=== PATIENT | male | born 1945 | race Caucasian/White ===

== ENCOUNTER 2021-02-12 22:24 | Inpatient (IN) | payer MEDICARE ==
[2021-02-12] MEDS ORDERED: HEPARIN SODIUM 1,000 UN/ML (10ML VL) IV PRN (22:59)
--- NOTE | 2021-02-12 22:59 | ED ---
General Adult HPI - General Chief complaint: Syncope Stated complaint: Chest Pain Time Seen by Provider: 02/12/21 22:26 Source: patient, EMS Mode of arrival: EMS Limitations: no limitations - History of Present Illness Initial comments: This patient is a 75-year-old man who presents here as a transfer from [facility]. The patient had gone there after having chest pain and syncopal episodes. Patient states she was feeling like his usual self until around 3 in the afternoon. A little after that, he was walking from his garage to his home when he felt some pressure in the epigastric area/lower substernal area and then he passed out. Patient had some accompanying dyspnea and diaphoresis. After getting up, he reportedly had another one or 2 syncopal episodes and his had him go to the other hospital where he was found to grady ve an elevated troponin and possibly some ECG changes. Patient was transferred here to be admitted and have cardiology consultation. When I interview the patient, he states that the pressure in his chest had gone away. He is dyspnea and diaphoresis had resolved. Onset/Timin -: hour(s) Location: chest Radiation: other Quality: other (Pressure) Consistency: now resolved Improves with: medication Worsens with: none Associated Symptoms: chest pain, diaphoresis, shortness of breath, syncope Treatments Prior to Arrival: Aspirin, other - Related Data Home Medications Medication Instructions Recorded Confirmed Ascorbic Acid [Vitamin C] 1,000 mg PO DAILY 02/12/21 02/12/21 Aspirin EC [Ecotrin Low Dose] 81 mg PO DAILY 02/12/21 02/12/21 Carvedilol [Coreg] 12.5 mg PO BID 02/12/21 02/12/21 Cholecalciferol [Vitamin D3 (25 25 mcg PO DAILY 02/12/21 02/12/21 Mcg = 1000 Iu)] Elderberry Fruit and Flower [Black 1 cap PO DAILY 02/12/21 02/12/21 Elderberry 575 mg Cap] Gabapentin [Neurontin] 600 mg PO HS 02/12/21 02/14/21 Insulin Aspart (For Pump) [NovoLOG 0.01 unit SQ-PUMP CONTINUOUS MDD 02/12/21 02/12/21 (For Pump)] 90 units Magnesium 250 mg PO DAILY 02/12/21 02/12/21 Montelukast Sodium [Singulair] 10 mg PO DAILY 02/12/21 02/12/21 Zinc 50 mg PO DAILY 02/12/21 02/12/21 traZODone HCL [Desyrel] 50 mg PO HS 02/12/21 02/12/21 Omeprazole Magnesium [PriLOSEC OTC] 20 mg PO DAILY 02/13/21 02/13/21 Previous Rx's Medication Instructions Recorded Clopidogrel Bisulfate [Plavix] 75 mg PO DAILY #90 tab 02/15/21 Rosuvastatin Calcium [Crestor] 10 mg PO DAILY #90 tab 02/15/21 Ticagrelor [Brilinta] 90 mg PO BID #60 tab 02/15/21 Allergies Allergy/AdvReac Type Severity Reaction Status Date / Time isosorbide [From Imdur] AdvReac MUSCLE Verified 02/12/21 23:16 WEAKNESS, Losses feeling in legs Johluxs-Lee-Izy Reductase AdvReac MUSCLE Verified 02/12/21 23:16 Inhibitor WEAKNESS, Losses feeling in legs Review of Systems ROS Statement: Those systems with pertinent positive or pertinent negative responses have been documented in the HPI. ROS Other: All systems not noted in ROS Statement are negative. Constitutional: Denies: fever, chills Respiratory: Reports: dyspnea. Denies: cough Cardiovascular: Reports: chest pain, syncope. Denies: palpitations, orthopnea, edema Gastrointestinal: Reports: nausea, vomiting. Denies: abdominal pain Genitourinary: Denies: dysuria, hematuria Musculoskeletal: Denies: back pain Skin: Denies: rash Neurological: Denies: headache, weakness, numbness Past Medical History Past Medical History: Chest Pain / Angina, Syncope History of Any Multi-Drug Resistant Organisms: None Reported Past Surgical History: Coronary Bypass/CABG Past Psychological History: No Psychological Hx Reported Smoking Status: Never smoker Past Alcohol Use History: None Reported Past Drug Use History: None Reported - Past Family History Family Family Medical History: No Reported History General Exam Limitations: no limitations General appearance: alert, in no apparent distress Head exam: Present: atraumatic, normocephalic Eye exam: Present: normal appearance. Absent: scleral icterus, conjunctival injection ENT exam: Present: normal oropharynx Neck exam: Present: normal inspection Respiratory exam: Present: normal lung sounds bilaterally. Absent: respiratory distress, wheezes, rales, rhonchi, stridor Cardiovascular Exam: Present: regular rate, normal rhythm, normal heart sounds. Absent: systolic murmur, diastolic murmur, rubs, gallop GI/Abdominal exam: Present: soft. Absent: distended, tenderness, guarding, rebound, rigid, mass Extremities exam: Present: normal inspection, normal capillary refill, pedal edema (Trace edema bilateral ankles). Absent: calf tenderness Back exam: Present: normal inspection Neurological exam: Present: alert Skin exam: Present: warm, dry, intact, normal color. Absent: rash Course Vital Signs 02/12/21 02/12/21 02/13/21 22:39 23:32 00:59 Temperature 98.1 F 98.2 F 97.9 F Pulse Rate 68 68 Pulse Rate [ 67 Pulse Oximetery ] Respiratory 16 16 18 Rate Blood Pressure 183/87 172/79 Blood Pressure 188/91 [Left Arm] O2 Sat by Pulse 98 97 99 Oximetry EKG Findings - EKG Results: EKG: interpreted by ERMD, sinus rhythm (Rate 66 bpm) - Blocks, Hamill, Hypertrophy, ST Abn: AV and intraventricular conduction: 1 AV block, right bundle branch block (fixed/intermittent, complete/incomplete) QRS axis and voltage: left axis deviation (-30 to -90) Medical Decision Making - Lab Data Result diagrams: 02/15/21 07:03 02/15/21 07:03 Disposition Clinical Impression: NSTEMI (non-ST elevated myocardial infarction), Syncope Disposition: ADMITTED IP TO THIS HOSP Condition: Serious Is patient prescribed a controlled substance at d/c from ED?: No
[2021-02-12] MEDS ORDERED: HEPARIN SOD,PORK IN 0.45% NACL 25,000 UNIT in 0.45% NACL 1 250ML.BAG IV SCH (23:00)
[2021-02-12 23:25] LABS: Basophils % (A) 0 %; Eosinophils # (A) 0.2 k/uL (0-0.7); Eosinophils % (A) 2 %; HCT 41.7 % (39.0-53.0); HGB 14.2 gm/dL (13.0-17.5); Lymphocytes # (A) 1.4 k/uL (1.0-4.8); Lymphocytes % (A) 18 %; MCH 31.7 pg (25.0-35.0); MCV 93.1 fL (80.0-100.0); Mean Platelet Volume 7.4; Monocytes # (A) 0.5 k/uL (0-1.0); Monocytes % (A) 7 %; Neutrophils # (A) 5.4 k/uL (1.3-7.7); Neutrophils % (A) 71 %; Platelet Count 260 k/uL (150-450); RBC 4.48 m/uL (4.30-5.90); RDW 12.8 % (11.5-15.5); WBC 7.6 k/uL (3.8-10.6)
[2021-02-12] MEDS: SODIUM CHLORIDE 0.9% 1,000 ML IV SCH (23:33)
[2021-02-12 23:37] LABS: Partial Thromboplastin Time 45.1 sec (22.0-30.0); Prothrombin Time 10.3 sec (9.0-12.0)
[2021-02-12 23:39] LABS: Calcium 9.1 mg/dL (8.4-10.2)
[2021-02-13 01:01] LABS: Glucose,Whole Blood 160 mg/dL (75-99)
[2021-02-13] MEDS: traZODone HCL 50 MG TAB PO SCH ×2 (01:47→20:51)
[2021-02-13] MEDS: GABAPENTIN 400 MG CAP PO SCH ×2 (01:47→20:51)
[2021-02-13] MEDS: carvediloL 12.5 MG TAB PO SCH ×3 (01:47→20:51)
--- NOTE | 2021-02-13 03:59 | P.HPIM ---
History of Present Illness H&P Date: 02/12/21 Chief Complaint: Chest pain 75-year-old male with strong history of coronary artery disease status post bypass surgery, 2007, COPD, diabetes mellitus Patient was a transfer from [facility] for cardiology evaluation after was found to have elevated troponin and T-wave inversion in inferior leads and saying chest pain and syncope at home Patient comes in after experiencing chest pain resulting in syncope. As he was walking to his home after parking in the garage he experienced some chest pressure 8 out of 10 in severity retrosternal associated with heavy breathing diaphoresis he felt dizzy and about to pass out sent down on the deck and actually passed out for couple minutes his found him to come inside and then he experienced couple more episodes of passing out. Patient admits to palpitations diaphoresis heavy breathing and chest pressure. He claims that these episodes has been happening over the past couple weeks randomly without passing out usually he will experience some chest pressure with heavy breathing that would last couple hours and then will go away on its own he has not been taking any nitro for that. He has been lost to follow-up with cardiology for about a year now. His last left heart cath was back in 2007 when he required bypass surgery otherwise patient is not a good historian however he denies any fevers coughing shortness of breath he denies any GI bleeding abdominal pain he denies any sick contacts. Blood work at [facility] showed troponin of 8.8, creatinine of 1.6 with CK D3, d-dimer of 2.16, EKG showed first-degree AV block with right bundle branch block and T wave inversion in inferior leads patient was started on heparin at [facility] and sent to our hospital Review of Systems Pertinent positives as noted in HPI. All other systems were reviewed and are negative Past Medical History Past Medical History: Chest Pain / Angina, COPD, Diabetes Mellitus, Hyperlipidemia, Hypertension, Syncope History of Any Multi-Drug Resistant Organisms: None Reported Past Surgical History: Coronary Bypass/CABG Past Psychological History: No Psychological Hx Reported Smoking Status: Never smoker Past Alcohol Use History: None Reported Past Drug Use History: None Reported - Past Family History Family Family Medical History: No Reported History Medications and Allergies Home Medications Medication Instructions Recorded Confirmed Type Ascorbic Acid [Vitamin C] 1,000 mg PO DAILY 02/12/21 02/12/21 History Aspirin EC [Ecotrin Low Dose] 81 mg PO DAILY 02/12/21 02/12/21 History Carvedilol [Coreg] 12.5 mg PO BID 02/12/21 02/12/21 History Cholecalciferol [Vitamin D3 (25 25 mcg PO DAILY 02/12/21 02/12/21 History Mcg = 1000 Iu)] Elderberry Fruit and Flower [Black 1 cap PO DAILY 02/12/21 02/12/21 History Elderberry 575 mg Cap] Gabapentin [Neurontin] 400 mg PO HS 02/12/21 02/12/21 History Insulin Aspart (For Pump) [NovoLOG 0.01 unit SQ-PUMP CONTINUOUS MDD 02/12/21 02/12/21 History (For Pump)] 90 units Magnesium 250 mg PO DAILY 02/12/21 02/12/21 History Montelukast Sodium [Singulair] 10 mg PO DAILY 02/12/21 02/12/21 History Zinc 50 mg PO DAILY 02/12/21 02/12/21 History traZODone HCL [Desyrel] 50 mg PO HS 02/12/21 02/12/21 History Allergies Allergy/AdvReac Type Severity Reaction Status Date / Time isosorbide [From Imdur] AdvReac MUSCLE Verified 02/12/21 23:16 WEAKNESS, Losses feeling in legs Lbrmamr-Nwf-Cxl Reductase AdvReac MUSCLE Verified 02/12/21 23:16 Inhibitor WEAKNESS, Losses feeling in legs Physical Exam Vitals: Vital Signs Temp Pulse Resp BP Pulse Ox 02/12/21 23:32 98.2 F 68 16 172/79 97 02/12/21 22:39 98.1 F 68 16 183/87 98 Intake and Output 02/12/21 02/12/21 02/13/21 14:59 22:59 06:59 Other: Weight 126.099 kg Constitutional: No acute distress, conversant, pleasant Eyes: Anicteric sclerae, moist conjunctiva, Pupils equal round reactive to light ENMT: NC/AT Oropharynx clear, no erythema, or exudates Neck: Supple, FROM, no masses, or JVD No carotid bruits No thyromegaly Lungs: Clear to auscultation Clear to percussion Normal respiratory effort, no accessory muscle use Cardiovascular: Heart regular in rate and rhythm, No murmurs, gallops, or rubs +1 bilateral peripheral edema Abdominal: Soft Nontender, no guarding, rebound or rigidity Abdomen moving with respiration Normoactive bowel sounds No hepatomegaly, No splenomegaly No palpable mass No abdominal wall hernia noted Patient has an insulin pump in place currently suspended Skin: Have by half centimeter superficial ulcer over the sole of the right foot over the ball of the foot, small area of bruising and erythema over the tip of the left big toe otherwise, Normal temperature, tone, texture, turgor No induration No subcutaneous nodules No rash, lesions Extremities: No digital cyanosis No clubbing Pedal pulses weak and symmetrical, capillary refill is immediate Radial pulses intact and symmetrical No calf tenderness Psychiatric: Alert and oriented to person, place and time Appropriate affect fair judgement Neuro Muscles Strength 5/5 in all 4 extremities Sensation to light touch grossly present throughout Cranial nerves II-XII grossly intact No focal sensory deficits Lymphatics: no palpable cervical or supraclavicular , or inguinal lymph nodes Results CBC & Chem 7: 02/12/21 23:14 02/12/21 23:14 Labs: Abnormal Lab Results - Last 24 Hours (Table) 02/12/21 02/12/21 Range/Units 23:14 23:14 APTT 45.1 H (22.0-30.0) sec BUN 26 H (9-20) mg/dL Creatinine 1.62 H (0.66-1.25) mg/dL Glucose 138 H (74-99) mg/dL Assessment and Plan Assessment: NSTEMI Elevated creatinine unknown of underlying CK D3 or LYUBOV Heparin drip Trend troponins Cardiology consult History of CAD status post bypass Continue with aspirin and carvedilol Patient has intolerance to isosorbide and statins in the past IV fluid hydration gentle Elevated d-dimer CTA was not performed due to elevated renal function patient was started on heparin drip for an STEMI Check venous Doppler ultrasound of the lower legs rule out any blood clots Chronic conditions Hypertension Diabetes mellitus COPD Check A1c Insulin sliding scale, suspend insulin pump as patient is nothing by mouth Resume home meds Superficial wounds on bilateral feet patient follows up with foot doctor every 3 months continued follow-up as an outpatient CODE STATUS: Full code DVT prophylaxis: On heparin drip Discussed with: Patient, ER, RN Anticipated length of stay more than [address]: Home A total of 65 minutes was spent on the care of this complex patient more than 50% of the time was spent in counseling and care coordination.
[2021-02-13 06:45] LABS: Glucose,Whole Blood 365 mg/dL (75-99)
[2021-02-13] MEDS: INSULIN ASPART (NovoLOG) 100 UNIT/ML VIAL SQ SCH ×4 (06:47→20:51)
[2021-02-13 07:38] LABS: Basophils % (A) 0 %; Eosinophils # (A) 0.2 k/uL (0-0.7); Eosinophils % (A) 2 %; HGB 13.1 gm/dL (13.0-17.5); Lymphocytes % (A) 12 %; MCH 30.8 pg (25.0-35.0); MCV 96.2 fL (80.0-100.0); Mean Platelet Volume 7.5; Monocytes # (A) 0.5 k/uL (0-1.0); Monocytes % (A) 6 %; Neutrophils # (A) 6.6 k/uL (1.3-7.7); Neutrophils % (A) 79 %; Platelet Count 231 k/uL (150-450); RBC 4.27 m/uL (4.30-5.90); RDW 13.5 % (11.5-15.5); WBC 8.3 k/uL (3.8-10.6)
[2021-02-13 07:48] LABS: Calcium 8.2 mg/dL (8.4-10.2); Potassium 5.5 mmol/L (3.5-5.1)
[2021-02-13] MEDS: IPRATROPIUM-ALBUTEROL 3 ML NEB INHALATION PRN ×3 (08:19→19:43)
--- NOTE | 2021-02-13 08:19 | US ---
EXAMINATION TYPE: US venous doppler duplex LE DATE OF EXAM: 02/13/2021 8:14 AM COMPARISON: None CLINICAL HISTORY: elevated D dimer, rul eout clot. SOB, elevated D-Dimer SIDE PERFORMED: Bilateral TECHNIQUE: The lower extremity deep venous system is examined utilizing real time linear array sonog karuna with graded compression, doppler sonography and color-flow sonography. VESSELS IMAGED: Common Femoral Vein Deep Femoral Vein Greater Saphenous Vein * Femoral Vein Popliteal Vein Small Saphenous Vein * Proximal Calf Veins (* superficial vessels) Right Leg: Negative for DVT Left Leg: Negative for DVT, pt unable to tolerate compressions from left groin to distal femoral vei n which limits the exam. IMPRESSION: 1. No diagnostic evidence of DVT as visualized and given limitation of the exam.
[2021-02-13 08:49] LABS: Prothrombin Time 10.7 sec (9.0-12.0)
[2021-02-13] MEDS ORDERED: ASPIRIN 81 MG PO SCH (09:00)
[2021-02-13] MEDS ORDERED: ASPIRIN 325 MG TAB PO SCH (09:00)
[2021-02-13 09:59] LABS: Glucose,Whole Blood 268 mg/dL (75-99)
[2021-02-13] MEDS: MONTELUKAST 10 MG TAB PO SCH (10:10)
[2021-02-13] MEDS ORDERED: NITROGLYCERIN SL TABS 0.4 MG TAB SUBLINGUAL PRN ×2 (10:37→14:14)
[2021-02-13] MEDS ORDERED: ALPRAZolam 0.5 MG TAB PO PRN (10:37)
[2021-02-13] MEDS ORDERED: ALPRAZolam 0.25 MG TAB PO PRN (10:37)
[2021-02-13] MEDS: NITROGLYCERIN SL TABS 0.4 MG TAB SUBLINGUAL PRN ×2 (10:37→15:52)
--- NOTE | 2021-02-13 11:01 | P.CRDCN ---
History of Present Illness History of present illness: HISTORY OF PRESENTING ILLNESS Patient is a pleasant 75-year-old male with history of coronary artery disease status post CABG in 2007, COPD, diabetes mellitus, chronic kidney disease, congestive heart failure who presents secondary to syncopal episodes and non- STEMI. Patient states that he occasionally gets chest tightness over the last few years. Yesterday however he was coming home from shopping and had been having chest discomfort associated with some shortness breath, diaphoresis and nausea for the last few hours. When he was walking back in the house he became lightheaded and then had a syncopal episode. He got into the house and then had a second syncopal episode. He waited approximately an hour until his daughter urged him to seek medical care. He presented to [facility] and was found to have non-STEMI and transferred to [facility]. Currently he has been describing intermittent chest tightness. EKG shows sinus rhythm with first-degree block, right bundle branch block, nonspecific ST, T-wave abnormalities. Patient also underwent venous ultrasound which showed no DVT. Blood work reviewed with white blood cell 7.6, hemoglobin 14.2, BUN 26, creatinine 1.6, troponin 7.75, 6.8, a 0.7, cholesterol 219, LDL 156. Patient had previously been refusing nitrogl ycerin because he thought it decreases blood sugar. He normally follows with Dr. Sandoval however has not been in an approximately a year. He has a history of bypass however states his had no further stenting since that time. REVIEW OF SYSTEMS At the time of my exam: CONSTITUTIONAL: Denies fever or chills. CARDIOVASCULAR: +chest pain, +shortness of breath,no orthopnea, PND or palpitations. RESPIRATORY: Denies cough. GASTROINTESTINAL: Denies abdominal pain, diarrhea, constipation, nausea or vom iting. MUSCULOSKELETAL: Denies myalgias. NEUROLOGIC: Denies numbness, tingling or weakness. ENDOCRINE: Denies fatigue, weight change, polydipsia or polyurina. GENITOURINARY: Denies burning, hematuria or urgency with micturation. HEMATOLOGIC: Denies history of anemia or bleeding. PHYSICAL EXAMINATION Vital signs reviewed. CONSTITUTIONAL: No apparent distress, obese HEENT: Head is normocephalic. Pupils are equal, round. Sclerae anicteric. Mucous membranes of the mouth are moist. No JVD. No carotid bruit. CHEST EXAMINATION: Lungs are clear to auscultation. No chest wall tenderness is noted on palpation or with deep breathing. HEART EXAMINATION: Regular rate and rhythm. S1, S2 heard. No murmurs, gallops or rub. ABDOMEN: Soft, nontender. Positive bowel sounds. EXTREMITIES: 2+ peripheral pulses, no lower extremity edema and no calf tenderness. NEUROLOGIC EXAMINATION: Patient is awake, alert and oriented x3. ASSESSMENT 1. Syncope 2. Non-STEMI, ongoing intermittent chest pain 3. Coronary artery disease with history of CABG 2007 4. Essential hypertension 5. Hyperlipidemia 6. History of congestive heart failure, unclear systolic or diastolic 7. Diabetes mellitus 8. Chronic kidney disease PLAN Patient with non-STEMI and chest pain, shortness breath, diaphoresis. He had 2 syncopal episodes unclear if tachycardia arrhythmia or bradycardia from his non- STEMI. Continue to monitor on telemetry. Check 2-D echo. Discussed risks and benefits of heart catheterization including acute kidney injury however discussed benefits likely outweigh risks with patient having ongoing intermittent chest pain. Continue heparin. We will proceed with heart catheterization. Further recommendations to follow. Past Medical History Past Medical History: Chest Pain / Angina, COPD, Diabetes Mellitus, Hyperlipidemia, Hypertension, Syncope History of Any Multi-Drug Resistant Organisms: None Reported Past Surgical History: Coronary Bypass/CABG Additional Past Surgical History / Comment(s): CABG '08 Past Anesthesia/Blood Transfusion Reactions: No Reported Reaction Past Psychological History: No Psychological Hx Reported Smoking Status: Never smoker Past Alcohol Use History: None Reported Past Drug Use History: None Reported - Past Family History Family Family Medical History: No Reported History Medications and Allergies Home Medications Medication Instructions Recorded Confirmed Type Ascorbic Acid [Vitamin C] 1,000 mg PO DAILY 02/12/21 02/12/21 History Aspirin EC [Ecotrin Low Dose] 81 mg PO DAILY 02/12/21 02/12/21 History Carvedilol [Coreg] 12.5 mg PO BID 02/12/21 02/12/21 History Cholecalciferol [Vitamin D3 (25 25 mcg PO DAILY 02/12/21 02/12/21 History Mcg = 1000 Iu)] Elderberry Fruit and Flower [Black 1 cap PO DAILY 02/12/21 02/12/21 History Elderberry 575 mg Cap] Gabapentin [Neurontin] 400 mg PO HS 02/12/21 02/12/21 History Insulin Aspart (For Pump) [NovoLOG 0.01 unit SQ-PUMP CONTINUOUS MDD 02/12/21 02/12/21 History (For Pump)] 90 units Magnesium 250 mg PO DAILY 02/12/21 02/12/21 History Montelukast Sodium [Singulair] 10 mg PO DAILY 02/12/21 02/12/21 History Zinc 50 mg PO DAILY 02/12/21 02/12/21 History traZODone HCL [Desyrel] 50 mg PO HS 02/12/21 02/12/21 History Omeprazole Magnesium [PriLOSEC OTC] 20 mg PO DAILY 02/13/21 02/13/21 History Allergies Allergy/AdvReac Type Severity Reaction Status Date / Time isosorbide [From Imdur] AdvReac MUSCLE Verified 02/12/21 23:16 WEAKNESS, Losses feeling in legs Yqfufly-Jmb-Fhp Reductase AdvReac MUSCLE Verified 02/12/21 23:16 Inhibitor WEAKNESS, Losses feeling in legs Physical Exam Vitals: Vital Signs Temp Pulse Pulse Resp BP BP Pulse Ox 02/13/21 08:32 66 02/13/21 08:21 64 02/13/21 04:00 80 18 152/81 97 02/13/21 00:59 97.9 F 67 18 188/91 99 02/12/21 23:32 98.2 F 68 16 172/79 97 02/12/21 22:39 98.1 F 68 16 183/87 98 Intake and Output 02/12/21 02/13/21 02/13/21 22:59 06:59 14:59 Intake Total 500 107.333 Balance 500 107.333 Intake: Intake, IV Titration 500 107.333 Amount Heparin Sod,Pork in 0.45% 107.333 NaCl 25,000 unit In 0.45 % NaCl 1 250ml.bag @ 7.94 UNITS/KG/HR 10.012 mls/ hr IV .Q24H JULIAN Rx#: [id number] Sodium Chloride 0.9% 1, 500 000 ml @ 100 mls/hr IV . Q10H JULIAN Rx#:[id number] Oral 0 Other: # Voids 2 Weight 126.099 kg 145.5 kg Results 02/13/21 07:11 02/13/21 07:11 Cardiac Enzymes 02/12/21 02/13/21 02/13/21 Range/Units 23:14 02:07 07:11 Troponin I 7.750 H* 6.800 H* 8.720 H* (0.000-0.034) ng/mL Coagulation 02/12/21 02/13/21 02/13/21 Range/Units 23:14 07:11 07:11 PT 10.3 10.7 (9.0-12.0) sec APTT 45.1 H 40.2 H (22.0-30.0) sec Lipids 02/13/21 Range/Units 07:11 Triglycerides 121 (<150) mg/dL Cholesterol 219 H (<200) mg/dL HDL Cholesterol 39 L (40-60) mg/dL CBC 02/12/21 02/13/21 Range/Units 23:14 07:11 WBC 7.6 8.3 (3.8-10.6) k/uL RBC 4.48 4.27 L (4.30-5.90) m/uL Hgb 14.2 13.1 (13.0-17.5) gm/dL Hct 41.7 41.0 (39.0-53.0) % Plt Count 260 231 (150-450) k/uL Comprehensive Metabolic Panel 02/12/21 02/13/21 Range/Units 23:14 07:11 Sodium 139 135 L (137-145) mmol/L Potassium 5.0 5.5 H (3.5-5.1) mmol/L Chloride 106 103 (98-107) mmol/L Carbon Dioxide 27 24 (22-30) mmol/L BUN 26 H 26 H (9-20) mg/dL Creatinine 1.62 H 1.57 H (0.66-1.25) mg/dL Glucose 138 H 404 H (74-99) mg/dL Calcium 9.1 8.2 L (8.4-10.2) mg/dL Current Medications Generic Name Dose Route Start Last Admin Trade Name Freq PRN Reason Stop Dose Admin Albuterol/Ipratropium 3 ml 02/13/21 04:00 02/13/21 08:19 Ipratropium-Albuterol 3 Ml Neb INHALATION 3 ml RT-QID PRN Administration Shortness Of Breath Or Wheezing Alprazolam 0.25 mg 02/13/21 10:37 Alprazolam 0.25 Mg Tab PO Q6HR PRN Mild Anxiety Alprazolam 0.5 mg 02/13/21 10:37 Alprazolam 0.5 Mg Tab PO Q6HR PRN Moderate Anxiety Aspirin 325 mg 02/14/21 06:00 Aspirin 325 Mg Tab PO 02/14/21 06:01 ONCE ONE Aspirin 325 mg 02/15/21 09:00 Aspirin 325 Mg Tab PO DAILY JULIAN Atorvastatin Calcium 80 mg 02/14/21 06:00 Atorvastatin 80 Mg Tab PO 02/14/21 06:01 ONCE ONE Carvedilol 12.5 mg 02/13/21 01:30 02/13/21 10:11 Carvedilol 12.5 Mg Tab PO 12.5 mg BID JULIAN Administration Gabapentin 400 mg 02/13/21 01:28 02/13/21 01:47 Gabapentin 400 Mg Cap PO 400 mg HS JULIAN Administration Heparin Sodium (Porcine) 0 unit 02/12/21 22:59 Heparin Sodium 1,000 Un/Ml (10ml Vl) IV PER PROTOCOL PRN Low PTT Protocol Heparin Sodium/Sodium Chloride 250 mls @ 10.012 mls/hr 02/12/21 23:00 02/13/21 10:14 25,000 unit/ Sodium Chloride IV 9.93 units/kg/hr .Q24H JULIAN 12.522 mls/hr Titration Protocol 7.94 UNITS/KG/HR Sodium Chloride 1,000 mls @ 100 mls/hr 02/12/21 23:00 02/12/21 23:33 Saline 0.9% IV 100 mls/hr .Q10H JULIAN Administration Sodium Chloride 1,000 ml/ IV 1,000 mls @ 145.5 mls/hr 02/14/21 00:00 Solution IV 02/14/21 06:52 .Q6H53M ONE 1 ML/KG/HR Heparin Sodium (Porcine) 10, 1,001 mls @ 999 mls/hr 02/14/21 07:00 000 unit/ Sodium Chloride IRRIGATION 02/14/21 23:00 ONCE PRN INTRA-OP Heparin Sodium (Porcine) 2,500 250.5 mls @ 250 mls/hr 02/14/21 07:00 unit/ Sodium Chloride IRRIGATION 02/14/21 23:00 ONCE PRN INTRA-OP Insulin Aspart 0 unit 02/13/21 07:30 02/13/21 06:47 Insulin Aspart (Novolog) 100 Unit/Ml Vial SQ 10 unit ACHS JULIAN Administration Protocol Insulin Detemir 10 unit 02/13/21 10:30 Insulin Detemir (Levemir) 100 Unit/Ml Syr SQ DAILY@0700 JULIAN Insulin Detemir 10 unit 02/13/21 21:00 Insulin Detemir (Levemir) 100 Unit/Ml Syr SQ HS JULIAN Montelukast Sodium 10 mg 02/13/21 09:00 02/13/21 10:10 Montelukast 10 Mg Tab PO 10 mg DAILY JULIAN Administration Nitroglycerin 0.4 mg 02/12/21 23:00 02/13/21 10:37 Nitroglycerin Sl Tabs 0.4 Mg Tab SUBLINGUAL 0.4 mg Q5M PRN Administration Chest Pain Trazodone HCl 50 mg 02/13/21 01:28 02/13/21 01:47 Trazodone Hcl 50 Mg Tab PO 50 mg HS JULIAN Administration Intake and Output 02/12/21 02/13/21 02/13/21 22:59 06:59 14:59 Intake Total 500 107.333 Balance 500 107.333 Intake: Intake, IV Titration 500 107.333 Amount Heparin Sod,Pork in 0.45% 107.333 NaCl 25,000 unit In 0.45 % NaCl 1 250ml.bag @ 7.94 UNITS/KG/HR 10.012 mls/ hr IV .Q24H JULIAN Rx#: [id number] Sodium Chloride 0.9% 1, 500 000 ml @ 100 mls/hr IV . Q10H JULIAN Rx#:[id number] Oral 0 Other: # Voids 2 Weight 126.099 kg 145.5 kg 02/13/21 07:11 02/13/21 07:11
[2021-02-13] MEDS ORDERED: IV FLUID CONTINUATION 1,000 ML IV ONE (11:20)
[2021-02-13] MEDS ORDERED: LIDOCAINE 1% INJ 10MG/ML (20 ML MDV) ONE (11:32)
[2021-02-13] MEDS ORDERED: VERAPAMIL 2.5 MG/ML 2 ML AMP ONE (11:32)
[2021-02-13] MEDS ORDERED: fentaNYL (PF) 50 MCG/ML 2 ML AMP ONE (11:42)
[2021-02-13] MEDS ORDERED: MIDAZOLAM 2 MG/2 ML VIAL IV ONE (11:44)
[2021-02-13] MEDS ORDERED: LIDOCAINE 1% INJ 10MG/ML (20 ML MDV) SQ ONE (11:44)
[2021-02-13] MEDS ORDERED: fentaNYL (PF) 50 MCG/ML 2 ML AMP IV ONE (11:44)
[2021-02-13] MEDS ORDERED: HEPARIN SODIUM 1,000 UN/ML (10ML VL) ONE (11:52)
[2021-02-13] MEDS: HEPARIN SODIUM 1,000 UN/ML (10ML VL) IVP ONE ×3 (11:53→12:52)
[2021-02-13] MEDS ORDERED: SODIUM CHLORIDE 0.9% 1,000 ML IV ONE (12:09)
[2021-02-13] MEDS ORDERED: TICAGRELOR 90 MG TAB ONE (12:09)
[2021-02-13] MEDS ORDERED: TICAGRELOR 90 MG TAB PO ONE (12:10)
[2021-02-13] MEDS ORDERED: IOPAMIDOL-370 100ML BTL INJ ONE ×2 (12:14→12:52)
--- NOTE | 2021-02-13 12:18 | P.PN ---
Subjective Progress Note Date: 02/13/21 Patient is doing well this morning. He denies any chest pain at this time. He is scheduled for left heart catheterization a little bit later. Objective - Vital Signs Vital signs: Vital Signs Temp 97.9 F 02/13/21 00:59 Pulse 66 02/13/21 08:32 Resp 18 02/13/21 04:00 BP 152/81 02/13/21 04:00 Pulse Ox 97 02/13/21 04:00 Intake & Output 02/12/21 02/13/21 02/13/21 18:59 06:59 18:59 Intake Total 500 257.333 Balance 500 257.333 Weight 145.5 kg Intake: IV 150 Intake, IV Titration 500 107.333 Amount Heparin Sod,Pork in 0.45% 107.333 NaCl 25,000 unit In 0.45 % NaCl 1 250ml.bag @ 7.94 UNITS/KG/HR 10.012 mls/ hr IV .Q24H JULIAN Rx#: [id number] Sodium Chloride 0.9% 1, 500 000 ml @ 100 mls/hr IV . Q10H JULIAN Rx#:[id number] Oral 0 Other: # Voids 2 - Exam General: The patient is awake and alert, in no distress Eye: there is normal conjunctiva bilaterally. Neck: The neck is supple, there is no JVD. Cardiovascular: Normal S1-S2, no S3-S4, no murmurs. Respiratory: Lungs clear to auscultation bilaterally Gastrointestinal: Abdomen is soft, nontender Musculoskeletal: There is no pedal edema. Neurological:. Speech is normal. Skin: Skin is warm and dry - Labs CBC & Chem 7: 02/13/21 07:11 02/13/21 07:11 Labs: Abnormal Lab Results - Last 24 Hours (Table) 02/12/21 02/12/21 02/12/21 Range/Units 23:14 23:14 23:14 RBC (4.30-5.90) m/uL APTT 45.1 H (22.0-30.0) sec Sodium (137-145) mmol/L Potassium (3.5-5.1) mmol/L BUN 26 H (9-20) mg/dL Creatinine 1.62 H (0.66-1.25) mg/dL Glucose 138 H (74-99) mg/dL POC Glucose (mg/dL) (75-99) mg/dL Calcium (8.4-10.2) mg/dL Troponin I 7.750 H* (0.000-0.034) ng/mL Cholesterol (<200) mg/dL LDL Cholesterol, Calc (0-99) mg/dL HDL Cholesterol (40-60) mg/dL 02/13/21 02/13/21 02/13/21 Range/Units 00:58 02:07 06:44 RBC (4.30-5.90) m/uL APTT (22.0-30.0) sec Sodium (137-145) mmol/L Potassium (3.5-5.1) mmol/L BUN (9-20) mg/dL Creatinine (0.66-1.25) mg/dL Glucose (74-99) mg/dL POC Glucose (mg/dL) 160 H 365 H (75-99) mg/dL Calcium (8.4-10.2) mg/dL Troponin I 6.800 H* (0.000-0.034) ng/mL Cholesterol (<200) mg/dL LDL Cholesterol, Calc (0-99) mg/dL HDL Cholesterol (40-60) mg/dL 02/13/21 02/13/21 02/13/21 Range/Units 07:11 07:11 07:11 RBC 4.27 L (4.30-5.90) m/uL APTT 40.2 H (22.0-30.0) sec Sodium (137-145) mmol/L Potassium (3.5-5.1) mmol/L BUN (9-20) mg/dL Creatinine (0.66-1.25) mg/dL Glucose (74-99) mg/dL POC Glucose (mg/dL) (75-99) mg/dL Calcium (8.4-10.2) mg/dL Troponin I 8.720 H* (0.000-0.034) ng/mL Cholesterol (<200) mg/dL LDL Cholesterol, Calc (0-99) mg/dL HDL Cholesterol (40-60) mg/dL 02/13/21 02/13/21 Range/Units 07:11 09:58 RBC (4.30-5.90) m/uL APTT (22.0-30.0) sec Sodium 135 L (137-145) mmol/L Potassium 5.5 H (3.5-5.1) mmol/L BUN 26 H (9-20) mg/dL Creatinine 1.57 H (0.66-1.25) mg/dL Glucose 404 H (74-99) mg/dL POC Glucose (mg/dL) 268 H (75-99) mg/dL Calcium 8.2 L (8.4-10.2) mg/dL Troponin I (0.000-0.034) ng/mL Cholesterol 219 H (<200) mg/dL LDL Cholesterol, Calc 156 H (0-99) mg/dL HDL Cholesterol 39 L (40-60) mg/dL Assessment and Plan Assessment: NSTEMI Elevated creatinine unknown of underlying CK D3 or LYUBOV Heparin drip Cardiology consulted plan for left heart catheterization History of CAD status post bypass Continue with aspirin and carvedilol Patient has intolerance to isosorbide and statins in the past IV fluid hydration gentle Elevated d-dimer CTA was not performed due to elevated renal function patient was started on heparin drip for an STEMI Venous Doppler negative bilateral Chronic conditions Hypertension Diabetes mellitus COPD Check A1c Insulin sliding scale, suspend insulin pump as patient is nothing by mouth Resume home meds Superficial wounds on bilateral feet patient follows up with foot doctor every 3 months continued follow-up as an outpatient CODE STATUS: Full code DVT prophylaxis: On heparin drip Discussed with: Patient Anticipated length of stay more than [address]: Home
[2021-02-13] MEDS ORDERED: niCARdipine 25 MG/10 ML VIAL ONE (12:38)
[2021-02-13] MEDS: INSULIN DETEMIR (LEVEMIR) 100 UNIT/ML SYR SQ SCH ×2 (13:45→20:51)
[2021-02-13 13:50] LABS: Glucose,Whole Blood 276 mg/dL (75-99)
[2021-02-13] MEDS ORDERED: RX INFO: IV CONTRAST WAS GIVEN 1 EACH MISC MISCELLANE PRN (14:14)
[2021-02-13] MEDS ORDERED: MAG HYDROX/AL HYDROX/SIMETH 30 ML CUP PO PRN (14:14)
[2021-02-13] MEDS ORDERED: ZOLPIDEM 5 MG TAB PO PRN (14:14)
[2021-02-13] MEDS ORDERED: ATROPINE SULFATE 0.1 MG/ML 10ML SYRINGE IV PRN (14:14)
[2021-02-13] MEDS ORDERED: SODIUM CHLORIDE 0.9% 1,000 ML IV SCH (14:15)
[2021-02-13 14:46] LABS: Hemoglobin A1C 8.5 % (4.0-6.0)
[2021-02-13] MEDS ORDERED: HEPARIN SODIUM 1,000 UN/ML (10ML VL) IV PRN (16:17)
[2021-02-13 17:13] LABS: Glucose,Whole Blood 343 mg/dL (75-99)
[2021-02-13] MEDS: HEPARIN SOD,PORK IN 0.45% NACL 25,000 UNIT in 0.45% NACL 1 250ML.BAG IV SCH (17:18)
[2021-02-13 17:21] LABS: Partial Thromboplastin Time 30.8 sec (22.0-30.0); Prothrombin Time 10.4 sec (9.0-12.0)
[2021-02-13] MEDS: NITROGLYCERIN-D5W PMX 50 MG in DEXTROSE/WATER 1 250ML.BAG IV SCH (17:21)
[2021-02-13] MEDS: PANTOPRAZOLE 40 MG TABLET PO SCH (17:51)
[2021-02-13] MEDS: SODIUM CHLORIDE 0.9% 1,000 ML IV SCH (18:27)
[2021-02-13 19:58] LABS: Glucose,Whole Blood 318 mg/dL (75-99)
[2021-02-13] MEDS: TICAGRELOR 90 MG TAB PO SCH (20:51)
--- NOTE | 2021-02-13 22:20 | P.PRCINT ---
Percutaneous Coronary Int. - Percutaneous Coronary Intervention Percutaneous Coronary Intervention: PROCEDURES PERFORMED: Bilateral coronary angiography, SVG to diagonal angiography, SALAS to LAD angiography, PCI of SVG to diagonal with a 3.0x 18mm Xience ANA with Spider 4.0 Embolic protection device, Angioseal closure INDICATION: Syncope, non-STEMI HISTORY: Patient is a pleasant 75-year-old male with history of coronary artery disease status post CABG in 2007, hypertension, chronic kidney disease, diabetes mellitus, hyperlipidemia. He underwent 5 vessel bypass with what appears to be SVG to PDA, SVG to OM, SVG to diagonal, SVG to circumflex, SALAS to LAD however operative reports not available. Patient had been feeling fairly well and then start to develop chest discomfort, nausea and diaphoresis. A few hours later he experienced 2 syncopal episodes. He presented to outside hospital and was noted to have non-STEMI and therefore transferred to [facility]. He is still having intermittent chest discomfort and therefore decision was made to bring patient to [facility] for heart catheterization. Specifically discussed risks of kidney failure given his chronic kidney disease. CONSENT:I have discussed the risks, benefits and alternative therapies for the above-mentioned procedure and for both sedation/analgesia as well as necessary blood product administration, if indicated, as they pertain to this patient. The patient has indicated understanding and acceptance of the risks and procedures discussed. PROCEDURE: After the risks, benefits and alternatives of the above mentioned procedure explained in detail with the patient, informed consent was obtained. Patient was taken to the catheterization lab and prepped and draped in usual fashion. Femoral approach was used in order to attempt to minimize contrast. 1% lidocaine was used to anesthetize the right femoral artery. A 6-Ivorian sheath was placed in the right femoral artery using modified Seldinger technique, micropuncture and ultrasound guidance. Left coronary angiography was performed with a 6-Ivorian JL 4.0 catheter and right coronary angiography was performed with a 6-Ivorian FR4 catheter in various views. SALAS to LAD and SVG to diagonal angiography were performed with 6Fr FR4. There were what appeared to be nubs at the other 3 graft positions however extensive dye was not used to minimize contrast. The decision was made to perform PCI of the SVG to diagonal branch. Heparin was given for an ACT greater than 250. A 6-Ivorian FR4 guide was used to engage the SVG. A 0.014 BMW wire was advanced into the distal vessel. A guideliner was used to help give support. A 4.0 spider embolic protection device was then advanced over the 0.014 BMW wire and deployed. There was a large amount of thrombus noted and therefore a [place] and [place] catheter were attempted to be advanced however could not be advanced. The decision was made to perform primary stenting to avoid no reflow, excessive manipulation. A 3.0 x 18mm Xience ANA was deployed at the proximal SVG to diagonal branch. There was temporary no reflow noted, however once the Spider filter was retrieved flow improved and felt related to thrombus collected in filter which was seen on removing the filter. Repeat angiograms showed excellent LORRIE 3 flow with mild residual more proximal 10-20% stenosis felt best treated medically. Pre intervention there was 95% SVG stenosis and LORRIE 2 flow and post intervention there was residual 10% stenosis and LORRIE 3 flow with no dissection. The right right femoral angiogram showed adequate anatomy for closure. A 6Fr Angioseal was placed with hemostasis achieved. The patient tolerated the procedure well. Patient was transported back to the post catheterization holding area in stable condition. Conscious Sedation: Patient was monitored under the direct supervision of vision of myself for conscious sedation using Versed and fentanyl for a total duration of 70 minutes HEMODYNAMICS: Ao: 144/87 SELECTIVE CORONARY ARTERIOGRAPHY: LEFT MAIN: The left main is a large caliber vessel which bifurcates into the LAD and circumflex. There is proximal left main 60% stenosis. LEFT ANTERIOR DESCENDING CORONARY ARTERY: LAD is a large caliber vessel which wraps around to the apex. There is a proximal 80% LAD stenosis and a mid LAD 100% stenosis. There are diffuse collaterals that feed the diagonal branches. LEFT CIRCUMFLEX CORONARY ARTERY: Left circumflex is a moderate caliber vessel with proximal 99% stenosis. RIGHT CORONARY ARTERY: The right coronary artery is a large caliber vessel which gives off a PDA and PLV branch and is the dominant vessel. There is a long 100% mid RCA stenosis. There are right to left collaterals to the circumflex from an RV branch/ collaterals. SALAS to LAD: The SALAS has a proximal 20-30% stenosis and otherwise is free of disease. The mid to distal LAD has a 70% stenosis just distal to the touchdown of the SALAS. There are left to right collaterals to the PDA. SVG to diagonal: The SVG has a proximal 95% stenosis. The diagonal has mild disease and gives off left to left collaterals to an OM. Other SVG x 3, appeared to have nubs and felt to be 100% occluded. FINAL IMPRESSION: 1. Diffuse [place] multivessel CAD including left main 60%, mid LAD 100%, proximal circumflex 99%, mid RCA 100% stenosis. 2. SVG to diagonal 99% stenosis, s/p PCI with a 3.0 x 18mm Xience ANA 3. Patent SALAS to LAD however with more distal LAD with 70% stenosis. 4. NSTEMI PLAN: 1. Aggressive risk factor modification per most recent ACC/AHA guidelines. 2. Continue dual antiplatelets for 12 months. 3. Aggressive IVF hydration given CKD 4. If patient has recurrent angina, may consider PCI of round valley circumflex or distal LAD or WELDER FITTER GAS RCA however does have significant collaterals.
[2021-02-14] MEDS ORDERED: SODIUM CHLORIDE 0.9% 1,000 ML in EMPTY BAG 1 BAG IV ONE
[2021-02-14] MEDS: HEPARIN SOD,PORK IN 0.45% NACL 25,000 UNIT in 0.45% NACL 1 250ML.BAG IV SCH (05:32)
[2021-02-14] MEDS ORDERED: ATORVASTATIN 80 MG TAB PO ONE (06:00)
[2021-02-14] MEDS ORDERED: ASPIRIN 325 MG TAB PO ONE (06:00)
[2021-02-14 06:09] LABS: Glucose,Whole Blood 216 mg/dL (75-99)
[2021-02-14] MEDS: INSULIN ASPART (NovoLOG) 100 UNIT/ML VIAL SQ SCH ×5 (06:31→20:32)
[2021-02-14] MEDS: PANTOPRAZOLE 40 MG TABLET PO SCH (06:31)
[2021-02-14] MEDS: INSULIN DETEMIR (LEVEMIR) 100 UNIT/ML SYR SQ SCH ×2 (06:32→20:32)
[2021-02-14] MEDS ORDERED: HEPARIN SODIUM,PORCINE 2,500 UNIT in SODIUM CHLORIDE 0.9% 250 ML IRRIGATION PRN (07:00)
[2021-02-14] MEDS ORDERED: HEPARIN SODIUM,PORCINE 10,000 UNIT in SODIUM CHLORIDE 0.9% 1,000 ML IRRIGATION PRN (07:00)
[2021-02-14 08:00] LABS: Basophils % (A) 0 %; Eosinophils # (A) 0.2 k/uL (0-0.7); Eosinophils % (A) 3 %; HCT 34.5 % (39.0-53.0); HGB 11.9 gm/dL (13.0-17.5); Lymphocytes # (A) 1.1 k/uL (1.0-4.8); Lymphocytes % (A) 14 %; MCH 32.8 pg (25.0-35.0); MCHC 34.5 g/dL (31.0-37.0); MCV 95.1 fL (80.0-100.0); Mean Platelet Volume 7.4; Monocytes # (A) 0.6 k/uL (0-1.0); Monocytes % (A) 7 %; Neutrophils # (A) 5.7 k/uL (1.3-7.7); Neutrophils % (A) 74 %; Platelet Count 224 k/uL (150-450); RBC 3.63 m/uL (4.30-5.90); RDW 12.8 % (11.5-15.5); WBC 7.8 k/uL (3.8-10.6)
[2021-02-14] MEDS: IPRATROPIUM-ALBUTEROL 3 ML NEB INHALATION PRN ×3 (08:05→16:04)
[2021-02-14 08:11] LABS: Prothrombin Time 10.4 sec (9.0-12.0)
[2021-02-14] MEDS: ASPIRIN 81 MG PO SCH (09:00)
[2021-02-14] MEDS: TICAGRELOR 90 MG TAB PO SCH ×2 (09:16→20:31)
[2021-02-14] MEDS: carvediloL 12.5 MG TAB PO SCH ×2 (09:16→20:31)
[2021-02-14] MEDS: MONTELUKAST 10 MG TAB PO SCH (09:17)
[2021-02-14 12:15] LABS: Glucose,Whole Blood 238 mg/dL (75-99)
--- NOTE | 2021-02-14 14:14 | P.PN ---
Subjective HISTORY OF PRESENTING ILLNESS Patient is a pleasant 75-year-old male with history of coronary artery disease status post CABG in 2007, COPD, diabetes mellitus, chronic kidney disease, congestive heart failure who presents secondary to syncopal episodes and non- STEMI. Patient states that he occasionally gets chest tightness over the last few years. Yesterday however he was coming home from shopping and had been having chest discomfort associated with some shortness breath, diaphoresis and nausea for the last few hours. When he was walking back in the house he became lightheaded and then had a syncopal episode. He got into the house and then had a second syncopal episode. He waited approximately an hour until his daughter urged him to seek medical care. He presented to [facility] and was found to have non-STEMI and transferred to [facility]. Currently he has been describing intermittent chest tightness. EKG shows sinus rhythm with first-degree block, right bundle branch block, nonspecific ST, T-wave abnormalities. Patient also underwent venous ultrasound which showed no DVT. Blood work reviewed with white blood cell 7.6, hemoglobin 14.2, BUN 26, creatinine 1.6, troponin 7.75, 6.8, a 0.7, cholesterol 219, LDL 156. Patient had previously been refusing nitroglycerin because he thought it decreases blood sugar. He normally follows with Dr. Sandoval however has not been in an approximately a year. He has a history of bypass however states his had no further stenting since that time. 02/14 Patient seen and examined. Patient underwent successful heart catheterization from a right femoral approach with PCI of SVG to diagonal branch. He was noted to have patent SALAS to LAD however more distal LAD 70% stenosis as well as the 3 other SVG grafts occluded. He did have residual circumflex disease and 100% RCA stenosis however diffuse collaterals. He did have some chest pain after intervention however was treated briefly with nitroglycerin and this has since improved. Right femoral site is clean without hematoma. REVIEW OF SYSTEMS At the time of my exam: CONSTITUTIONAL: Denies fever or chills. CARDIOVASCULAR: +chest pain, +shortness of breath,no orthopnea, PND or palpitations. RESPIRATORY: Denies cough. GASTROINTESTINAL: Denies abdominal pain, diarrhea, constipation, nausea or vomiting. MUSCULOSKELETAL: Denies myalgias. NEUROLOGIC: Denies numbness, tingling or weakness. ENDOCRINE: Denies fatigue, weight change, polydipsia or polyurina. GENITOURINARY: Denies burning, hematuria or urgency with micturation. HEMATOLOGIC: Denies history of anemia or bleeding. PHYSICAL EXAMINATION Vital signs reviewed. CONSTITUTIONAL: No apparent distress, obese HEENT: Head is normocephalic. Pupils are equal, round. Sclerae anicteric. Mucous membranes of the mouth are moist. No JVD. No carotid bruit. CHEST EXAMINATION: Lungs are clear to auscultation. No chest wall tenderness is noted on palpation or with deep breathing. HEART EXAMINATION: Regular rate and rhythm. S1, S2 heard. No murmurs, gallops or rub. ABDOMEN: Soft, nontender. Positive bowel sounds. EXTREMITIES: 2+ peripheral pulses, no lower extremity edema and no calf tenderness. NEUROLOGIC EXAMINATION: Patient is awake, alert and oriented x3. ASSESSMENT 1. Syncope 2. Non-STEMI, ongoing intermittent chest pain 3. Coronary artery disease with history of CABG 2007 4. Essential hypertension 5. Hyperlipidemia 6. History of congestive heart failure, unclear systolic or diastolic 7. Diabetes mellitus 8. Chronic kidney disease 9. PAD of LLE with LLE neuropathy, unclear if ischemic neuropathy PLAN Check 2-D echo. Patient is status post PCI of his SVG to diagonal branch. Patient with remaining significant disease however would continue to treat medically at this time. May consider staged PCI of circumflex or distal LAD. Continue dual antiplatelets. Likely event monitor going home for further workup of syncope. Patient states he would like to followup with me in the office. We discussed possible intervention of his left lower extremity PAD as well. Monitor Cr. Objective - Vital Signs Vital signs: Vital Signs Temp 98.8 F 02/13/21 20:00 Pulse 78 02/14/21 12:21 Resp 18 02/14/21 08:00 BP 116/56 02/14/21 08:00 Pulse Ox 95 02/14/21 08:00 Intake & Output 02/13/21 02/14/21 02/14/21 18:59 06:59 18:59 Intake Total 895.333 440.514 188.569 Output Total 350 Balance 545.333 440.514 188.569 Weight 183 kg Intake: IV 450 Intake, IV Titration 107.333 440.514 70.569 Amount Heparin Sod,Pork in 0.45% 140.514 70.569 NaCl 25,000 unit In 0.45 % NaCl 1 250ml.bag @ 6. 8729 UNITS/KG/HR 10 mls/ hr IV .Q24H JULIAN Rx#: [id number] Heparin Sod,Pork in 0.45% 107.333 NaCl 25,000 unit In 0.45 % NaCl 1 250ml.bag @ 7.94 UNITS/KG/HR 10.012 mls/ hr IV .Q24H JULIAN Rx#: [id number] Sodium Chloride 0.9% 1, 300 000 ml @ 150 mls/hr IV . Q6H40M JULIAN Rx#:[id number] Oral 338 118 Output: Urine 350 - Labs CBC & Chem 7: 02/14/21 06:31 02/14/21 06:31 Labs: Abnormal Lab Results - Last 24 Hours (Table) 02/13/21 02/13/21 02/13/21 Range/Units 07:11 17:00 17:11 RBC (4.30-5.90) m/uL Hgb (13.0-17.5) gm/dL Hct (39.0-53.0) % APTT 30.8 H (22.0-30.0) sec Creatinine (0.66-1.25) mg/dL POC Glucose (mg/dL) 343 H (75-99) mg/dL Hemoglobin A1c 8.5 H (4.0-6.0) % 02/13/21 02/13/21 02/14/21 Range/Units 19:57 22:23 06:06 RBC (4.30-5.90) m/uL Hgb (13.0-17.5) gm/dL Hct (39.0-53.0) % APTT 39.5 H (22.0-30.0) sec Creatinine (0.66-1.25) mg/dL POC Glucose (mg/dL) 318 H 216 H (75-99) mg/dL Hemoglobin A1c (4.0-6.0) % 02/14/21 02/14/21 02/14/21 Range/Units 06:31 06:31 09:11 RBC 3.63 L (4.30-5.90) m/uL Hgb 11.9 L (13.0-17.5) gm/dL Hct 34.5 L (39.0-53.0) % APTT 57.9 H (22.0-30.0) sec Creatinine 1.54 H (0.66-1.25) mg/dL POC Glucose (mg/dL) (75-99) mg/dL Hemoglobin A1c (4.0-6.0) % 02/14/21 Range/Units 12:10 RBC (4.30-5.90) m/uL Hgb (13.0-17.5) gm/dL Hct (39.0-53.0) % APTT (22.0-30.0) sec Creatinine (0.66-1.25) mg/dL POC Glucose (mg/dL) 238 H (75-99) mg/dL Hemoglobin A1c (4.0-6.0) %
--- NOTE | 2021-02-14 15:10 | P.PN ---
Subjective Progress Note Date: 02/14/21 Patient is doing well today. He denies any chest pain. No acute events overnight. Objective - Vital Signs Vital signs: Vital Signs Temp 98.8 F 02/13/21 20:00 Pulse 78 02/14/21 12:21 Resp 18 02/14/21 08:00 BP 116/56 02/14/21 08:00 Pulse Ox 95 02/14/21 08:00 Intake & Output 02/13/21 02/14/21 02/14/21 18:59 06:59 18:59 Intake Total 895.333 440.514 428.569 Output Total 350 Balance 545.333 440.514 428.569 Weight 183 kg Intake: IV 450 Intake, IV Titration 107.333 440.514 70.569 Amount Heparin Sod,Pork in 0.45% 140.514 70.569 NaCl 25,000 unit In 0.45 % NaCl 1 250ml.bag @ 6. 8729 UNITS/KG/HR 10 mls/ hr IV .Q24H JULIAN Rx#: [id number] Heparin Sod,Pork in 0.45% 107.333 NaCl 25,000 unit In 0.45 % NaCl 1 250ml.bag @ 7.94 UNITS/KG/HR 10.012 mls/ hr IV .Q24H JULIAN Rx#: [id number] Sodium Chloride 0.9% 1, 300 000 ml @ 150 mls/hr IV . Q6H40M JULIAN Rx#:[id number] Oral 338 358 Output: Urine 350 - Exam General: The patient is awake and alert, in no distress Eye: there is normal conjunctiva bilaterally. Neck: The neck is supple, there is no JVD. Cardiovascular: Normal S1-S2, no S3-S4, no murmurs. Respiratory: Lungs clear to auscultation bilaterally Gastrointestinal: Abdomen is soft, nontender Musculoskeletal: There is no pedal edema. Neurological:. Speech is normal. Skin: Skin is warm and dry - Labs CBC & Chem 7: 02/14/21 06:31 02/14/21 06:31 Labs: Abnormal Lab Results - Last 24 Hours (Table) 02/13/21 02/13/21 02/13/21 Range/Units 17:00 17:11 19:57 RBC (4.30-5.90) m/uL Hgb (13.0-17.5) gm/dL Hct (39.0-53.0) % APTT 30.8 H (22.0-30.0) sec Creatinine (0.66-1.25) mg/dL POC Glucose (mg/dL) 343 H 318 H (75-99) mg/dL 02/13/21 02/14/21 02/14/21 Range/Units 22:23 06:06 06:31 RBC 3.63 L (4.30-5.90) m/uL Hgb 11.9 L (13.0-17.5) gm/dL Hct 34.5 L (39.0-53.0) % APTT 39.5 H (22.0-30.0) sec Creatinine (0.66-1.25) mg/dL POC Glucose (mg/dL) 216 H (75-99) mg/dL 02/14/21 02/14/21 02/14/21 Range/Units 06:31 09:11 12:10 RBC (4.30-5.90) m/uL Hgb (13.0-17.5) gm/dL Hct (39.0-53.0) % APTT 57.9 H (22.0-30.0) sec Creatinine 1.54 H (0.66-1.25) mg/dL POC Glucose (mg/dL) 238 H (75-99) mg/dL Assessment and Plan Assessment: This is a 75-year-old male with past medical history noted below that presented to the emergency room with chest pain. Patient was evaluated in the ER and admitted to the hospital for further management of his medical problems noted below. 1. Non-ST elevation HI, treated with optimal medical management. Seen and evaluated by cardiology. Underwent left heart cath showing multivessel coronary artery disease. Advised for maximized medical management. May consider PCI down the road. 2. Stage IIIB chronic kidney disease with creatinine around 1.5. Stable. We'll continue to monitor 3. Type 2 diabetes: On insulin pump at home. Currently off the pump. We will continue with Levemir and NovoLog as ordered. Blood glucose within acceptable range. 4. Chronic medical problems, essential hypertension, coronary artery disease with history of CABG in 2007, peripheral vascular occlusive disease, chronic neuropathy Today, I reviewed his medication list and lab work results. Patient has an ALLERGY to statins. Continue medical management as ordered by cardiology. Awaiting echocardiogram.
[2021-02-14 17:14] LABS: Glucose,Whole Blood 312 mg/dL (75-99)
[2021-02-14] MEDS: NITROGLYCERIN-D5W PMX 50 MG in DEXTROSE/WATER 1 250ML.BAG IV SCH (19:07)
[2021-02-14 19:44] LABS: Glucose,Whole Blood 375 mg/dL (75-99)
[2021-02-14] MEDS: GABAPENTIN 400 MG CAP PO SCH (20:31)
[2021-02-14] MEDS: traZODone HCL 50 MG TAB PO SCH (20:31)
[2021-02-15 05:49] LABS: Glucose,Whole Blood 166 mg/dL (75-99)
[2021-02-15] MEDS: INSULIN ASPART (NovoLOG) 100 UNIT/ML VIAL SQ SCH ×2 (06:26→08:53)
[2021-02-15] MEDS: PANTOPRAZOLE 40 MG TABLET PO SCH (06:26)
[2021-02-15] MEDS: INSULIN DETEMIR (LEVEMIR) 100 UNIT/ML SYR SQ SCH (06:26)
[2021-02-15 08:05] LABS: Calcium 8.1 mg/dL (8.4-10.2); Magnesium 1.7 mg/dL (1.6-2.3); Potassium 4.4 mmol/L (3.5-5.1)
[2021-02-15] MEDS: IPRATROPIUM-ALBUTEROL 3 ML NEB INHALATION PRN (08:21)
[2021-02-15 08:34] LABS: Basophils # (A) 0.1 k/uL (0-0.2); Basophils % (A) 1 %; Eosinophils # (A) 0.3 k/uL (0-0.7); Eosinophils % (A) 5 %; HCT 33.6 % (39.0-53.0); HGB 11.8 gm/dL (13.0-17.5); Lymphocytes # (A) 0.9 k/uL (1.0-4.8); Lymphocytes % (A) 12 %; MCH 33.5 pg (25.0-35.0); MCHC 35.1 g/dL (31.0-37.0); MCV 95.5 fL (80.0-100.0); Mean Platelet Volume 7.3; Monocytes # (A) 0.9 k/uL (0-1.0); Monocytes % (A) 12 %; Neutrophils # (A) 5.1 k/uL (1.3-7.7); Neutrophils % (A) 69 %; Platelet Count 218 k/uL (150-450); RBC 3.52 m/uL (4.30-5.90); WBC 7.4 k/uL (3.8-10.6)
[2021-02-15] MEDS ORDERED: ASPIRIN 325 MG TAB PO SCH (09:00)
[2021-02-15] MEDS: carvediloL 12.5 MG TAB PO SCH (09:25)
[2021-02-15] MEDS: ASPIRIN 81 MG PO SCH (09:25)
[2021-02-15] MEDS: MONTELUKAST 10 MG TAB PO SCH (09:25)
[2021-02-15] MEDS: TICAGRELOR 90 MG TAB PO SCH (09:25)
[2021-02-15] MEDS ORDERED: INSPUCOR MISCELLANE PRN (10:41)
[2021-02-15] MEDS ORDERED: INSULIN PUMP ACTIVE INSULIN 1 EACH MISC MISCELLANE PRN (10:41)
[2021-02-15] MEDS ORDERED: INSULIN PUMP TARGET GLUCOSE 1 EACH MISC MISCELLANE PRN (10:41)
[2021-02-15] MEDS ORDERED: INSULIN ASPART (NovoLOG) 100 UNIT/ML VIAL SQ PRN (10:41)
[2021-02-15] MEDS ORDERED: INSULIN PUMP BASAL RATES 1 EACH MISC MISCELLANE PRN (10:41)
[2021-02-15 11:42] LABS: Glucose,Whole Blood 200 mg/dL (75-99)
[2021-02-15] MEDS ORDERED: INSULIN PUMP MEAL BOLUS 1 UNIT MISC MISCELLANE SCH (12:30)
--- NOTE | 2021-02-15 12:59 | P.PN ---
Subjective Progress Note Date: 02/15/21 Patient is doing well today. He denies any chest pain. No acute events overnight. Objective - Vital Signs Vital signs: Vital Signs Temp 97.4 F L 02/14/21 20:00 Pulse 80 02/15/21 08:30 Resp 20 02/15/21 04:00 BP 135/60 02/15/21 04:00 Pulse Ox 99 02/15/21 04:00 Intake & Output 02/14/21 02/15/21 02/15/21 18:59 06:59 18:59 Intake Total 258.177 3637 Balance 760.278 0038 Weight 171 kg Intake: Intake, IV Titration 70.569 Amount Heparin Sod,Pork in 0.45% 70.569 NaCl 25,000 unit In 0.45 % NaCl 1 250ml.bag @ 6. 8729 UNITS/KG/HR 10 mls/ hr IV .Q24H JULIAN Rx#: [id number] Oral [id number] Other: # Voids 2 # Bowel Movements 0 - Exam General: The patient is awake and alert, in no distress Eye: there is normal conjunctiva bilaterally. Neck: The neck is supple, there is no JVD. Cardiovascular: Normal S1-S2, no S3-S4, no murmurs. Respiratory: Lungs clear to auscultation bilaterally Gastrointestinal: Abdomen is soft, nontender Musculoskeletal: There is no pedal edema. Neurological:. Speech is normal. Skin: Skin is warm and dry - Labs CBC & Chem 7: 02/15/21 07:03 02/15/21 07:03 Labs: Abnormal Lab Results - Last 24 Hours (Table) 02/14/21 02/14/21 02/15/21 Range/Units 17:12 19:42 05:48 RBC (4.30-5.90) m/uL Hgb (13.0-17.5) gm/dL Hct (39.0-53.0) % Lymphocytes # (1.0-4.8) k/uL BUN (9-20) mg/dL Creatinine (0.66-1.25) mg/dL Glucose (74-99) mg/dL POC Glucose (mg/dL) 312 H 375 H 166 H (75-99) mg/dL Calcium (8.4-10.2) mg/dL 0502/15/21 02/15/21 Range/Units 07:03 07:03 11:39 RBC 3.52 L (4.30-5.90) m/uL Hgb 11.8 L (13.0-17.5) gm/dL Hct 33.6 L (39.0-53.0) % Lymphocytes # 0.9 L (1.0-4.8) k/uL BUN 22 H (9-20) mg/dL Creatinine 1.45 H (0.66-1.25) mg/dL Glucose 163 H (74-99) mg/dL POC Glucose (mg/dL) 200 H (75-99) mg/dL Calcium 8.1 L (8.4-10.2) mg/dL Assessment and Plan Assessment: This is a 75-year-old male with past medical history noted below that presented to the emergency room with chest pain. Patient was evaluated in the ER and admitted to the hospital for further management of his medical problems noted below. 1. Non-ST elevation DC, treated with optimal medical management. Seen and evaluated by cardiology. Underwent left heart cath showing multivessel coronary artery disease. Advised for maximized medical management. May consider PCI down the road. 2. Stage IIIB chronic kidney disease with creatinine around 1.5. Stable. We'll continue to monitor 3. Type 2 diabetes: On insulin pump at home. This will be resumed today 4. Chronic medical problems, essential hypertension, coronary artery disease with history of CABG in 2007, peripheral vascular occlusive disease, chronic neuropathy Today, I reviewed his medication list and lab work results. Patient has an ALLERGY to statins. Continue medical management as ordered by cardiology. Awaiting echocardiogram. Awaiting clearance from cardiology for discharge possibly tomorrow
--- NOTE | 2021-02-15 13:00 | ECHOF ---
Referral Reason:re: NSTEMI, CABG MEASUREMENTS -------- HEIGHT: 177.8 cm WEIGHT: 170.6 kg BP: IVSd: 1.5 cm (0.6 - 1.1) LVIDd: 4.9 cm (3.9 - 5.3) LVPWd: 1.4 cm (0.6 - 1.1) IVSs: 1.8 cm LVIDs: 2.5 cm LVPWs: 2.3 cm Ao Diam: 3.6 cm (2.0 - 3.7) AV Cusp: 2.3 cm (1.5 - 2.6) LA Diam: 3.3 cm (2.7 - 3.8) MV EXCURSION: 10.412 mm (> 18.000) MV EF SLOPE: 98 mm/s (70 - 150) EPSS: 1.2 cm MV E Geo: 1.01 m/s MV DecT: 151 ms MV A Geo: 0.91 m/s MV E/A Ratio: 1.11 RAP: 5.00 mmHg RVSP: 11.33 mmHg FINDINGS -------- This was a technically difficult study with suboptimal views. The left ventricular size is normal. Left ventricular wall thickness is normal. Overall left vent ricular systolic function is mildly impaired with, an EF between 45 - 50 %. Basal inferior LV wall motion is hypokinetic. basal inferiorlateral is hypokinetic The RV was not well visualized. The left atrial size is normal. The right atrial size is normal. xx ml of Lumason was utilized for enhancement of images. The aortic valve was not well visualized. The mitral valve was not well visualized. There is trace mitral regurgitation. The tricuspid valve was not well visualized. Trace tricuspid regurgitation present. Right ventric ular systolic pressure is normal at < 35 mmHg. There is no evidence of pulmonary hypertension. The pulmonic valve was not well visualized. The aortic root size is normal. There is no pericardial effusion. CONCLUSIONS -------- 1. The left ventricular size is normal. 2. Left ventricular wall thickness is normal. 3. Overall left ventricular systolic function is mildly impaired with, an EF between 45 - 50 %. 4. Basal inferior LV wall motion is hypokinetic. 5. basal inferiorlateral is hypokinetic 6. There is trace mitral regurgitation. 7. Right ventricular systolic pressure is normal at < 35 mmHg. 8. There is no pericardial effusion. SEISMIC COMPUTER: Nayely Helton RDCS
--- NOTE | 2021-02-15 13:21 | P.PN ---
Subjective This is a pleasant 75-year-old male with history of coronary artery disease status post CABG in 2007, COPD, diabetes mellitus, chronic kidney disease, congestive heart failure who presents secondary to syncopal episodes and non- STEMI. Patient states that he occasionally gets chest tightness over the last few years. Yesterday however he was coming home from shopping and had been having chest discomfort associated with some shortness breath, diaphoresis and nausea for the last few hours. When he was walking back in the house he became lightheaded and then had a syncopal episode. He got into the house and then had a second syncopal episode. He waited approximately an hour until his daughter urged him to seek medical care. He presented to [facility] and was found to have non-STEMI and transferred to [facility]. Currently he has been describing intermittent chest tightness. EKG shows sinus rhythm with first-degree block, right bundle branch block, nonspecific ST, T-wave abnormalities. Patient also underwent venous ultrasound which showed no DVT. Blood work reviewed with white blood cell 7.6, hemoglobin 14.2, BUN 26, creatinine 1.6, troponin 7.75, 6.8, a 0.7, cholesterol 219, LDL 156. Patient had previously been refusing nitroglycerin because he thought it decreases blood sugar. He normally follows with Dr. Sandoval however has not been in an approximately a year. He has a history of bypass however states his had no further stenting since that time. 02/15/2021 Patient seen and examined sitting up resting comfortably in bed in no acute distress. He has no symptoms of chest discomfort, worsening shortness of gilson th, dizziness or palpitations. Blood pressure 135/68 heart rate 88 afebrile maintaining oxygen saturation on nasal cannula. Laboratory data reviewed 7.4, hemoglobin 11.8, platelets 218, sodium 139, potassium 4.4, creatinine 1.45 and magnesium 1.7. Currently maintained on brillinta 90 mg twice a day, aspirin 81 mg daily and Coreg 12.5 mg twice a day. LDL checked earlier on this admission was 156. The patient is intolerant to statins. GENERAL: Well-appearing, well-nourished and in no acute distress. NECK: Supple without JVD or thyromegaly. LUNGS: Breath sounds clear to auscultation bilaterally. Respiration equal and unlabored. No wheezes, rales or rhonchi. HEART: Regular rate and rhythm without murmurs, rubs or gallops. S1 and S2 heard. EXTREMITIES: Normal range of motion, no edema. No clubbing or cyanosis. Peripheral pulses intact. ASSESSMENT Syncope NSTEMI Coronary artery disease s/p bypass grafting Hypertension Dyslipidemia Diabetes mellitus Chronic kidney disease Peripheral vascular disease PLAN Obtain 2D echocardiogram and doppler study to assess cardiac structure and fu nction. Continue dual anti-platelet therapy. No JANE/ARB secondary to renal function. Pt is intolerant to statins in the past, we will try crestor every other day and increase as tolerated. Brilinta will be continued for 30 days and then he will be transitioned to plavix thereafter, rx has been sent to the pharmacy. 30-day event monitor upon discharge. Follow up outpatient with Dr. Mas in 1-week. Nurse Practitioner note has been reviewed, I agree with a documented findings and plan of care. Patient was seen and examined. Objective - Vital Signs Vital signs: Vital Signs Temp 97.4 F L 02/14/21 20:00 Pulse 80 02/15/21 08:30 Resp 20 02/15/21 04:00 BP 135/60 02/15/21 04:00 Pulse Ox 99 02/15/21 04:00 Intake & Output 02/14/21 02/15/21 02/15/21 18:59 06:59 18:59 Intake Total 501.772 1369 Balance 670.881 1028 Weight 171 kg Intake: Intake, IV Titration 70.569 Amount Heparin Sod,Pork in 0.45% 70.569 NaCl 25,000 unit In 0.45 % NaCl 1 250ml.bag @ 6. 8729 UNITS/KG/HR 10 mls/ hr IV .Q24H [facility] Rx#: [id number] Oral [id number] Other: # Voids 2 # Bowel Movements 0 - Labs CBC & Chem 7: 02/15/21 07:03 02/15/21 07:03 Labs: Abnormal Lab Results - Last 24 Hours (Table) 02/14/21 02/14/21 02/14/21 Range/Units 12:10 17:12 19:42 RBC (4.30-5.90) m/uL Hgb (13.0-17.5) gm/dL Hct (39.0-53.0) % Lymphocytes # (1.0-4.8) k/uL BUN (9-20) mg/dL Creatinine (0.66-1.25) mg/dL Glucose (74-99) mg/dL POC Glucose (mg/dL) 238 H 312 H 375 H (75-99) mg/dL Calcium (8.4-10.2) mg/dL 02/15/21 02/15/21 02/15/21 Range/Units 05:48 07:03 07:03 RBC 3.52 L (4.30-5.90) m/uL Hgb 11.8 L (13.0-17.5) gm/dL Hct 33.6 L (39.0-53.0) % Lymphocytes # 0.9 L (1.0-4.8) k/uL BUN 22 H (9-20) mg/dL Creatinine 1.45 H (0.66-1.25) mg/dL Glucose 163 H (74-99) mg/dL POC Glucose (mg/dL) 166 H (75-99) mg/dL Calcium 8.1 L (8.4-10.2) mg/dL
[2021-02-15 13:33] VITALS: BMI 51.1
[2021-02-15 14:13] VITALS: PULSE 64; RESP 18; TEMP 97.6
[2021-02-15 14:14] VITALS: BP 185/62
--- NOTE | 2021-02-15 15:20 | P.DS ---
Providers Date of admission: 02/12/21 23:00 Expected date of discharge: 02/15/21 Attending physician: Eva Hinds MD Consults: 02/12/21 23:00 Consult Physician Urgent Consulting Provider: Brian Sandoval Consult Reason/Comments: Syncope. NSTEMI Do you want consulting provider notified?: Yes 02/13/21 14:14 Consult Physician Routine Consulting Provider: [facility] Consult Reason/Comments: Post Interventional patient Do you want consulting provider notified?: Already Contacted Primary care physician: Kaz K [facility] Course: This is a 75-year-old male with past medical history noted below that presented to the emergency room with chest pain. Patient was evaluated in the ER and admitted to the hospital for further management of his medical problems noted below. 1. Non-ST elevation AR, treated with optimal medical management. Seen and evaluated by cardiology. Underwent left heart cath showing multivessel coronary artery disease. Advised for maximized medical management. May consider PCI down the road. 2. Stage IIIB chronic kidney disease with creatinine around 1.5. Stable. 3. Type 2 diabetes: On insulin pump at home. 4. Chronic medical problems, essential hypertension, coronary artery disease with history of CABG in 2007, peripheral vascular occlusive disease, chronic neuropathy Patient Condition at Discharge: Stable Plan - Discharge Summary Discharge Rx Participant: No New Discharge Prescriptions: New Ticagrelor [Brilinta] 90 mg PO BID #60 tab Rosuvastatin Calcium [Crestor] 10 mg PO DAILY #90 tab Clopidogrel Bisulfate [Plavix] 75 mg PO DAILY #90 tab Continue Aspirin EC [Ecotrin Low Dose] 81 mg PO DAILY Insulin Aspart (For Pump) [NovoLOG (For Pump)] 0.01 unit SQ-PUMP CONTINUOUS MDD 90 units Cholecalciferol [Vitamin D3 (25 Mcg = 1000 Iu)] 25 mcg PO DAILY Carvedilol [Coreg] 12.5 mg PO BID Omeprazole Magnesium [PriLOSEC OTC] 20 mg PO DAILY Zinc 50 mg PO DAILY Magnesium 250 mg PO DAILY Elderberry Fruit and Flower [Black Elderberry 575 mg Cap] 1 cap PO DAILY Montelukast Sodium [Singulair] 10 mg PO DAILY Ascorbic Acid [Vitamin C] 1,000 mg PO DAILY traZODone HCL [Desyrel] 50 mg PO HS Gabapentin [Neurontin] 600 mg PO HS Discharge Medication List Ascorbic Acid [Vitamin C] 1,000 mg PO DAILY 02/12/21 [History] Aspirin EC [Ecotrin Low Dose] 81 mg PO DAILY 02/12/21 [History] Carvedilol [Coreg] 12.5 mg PO BID 02/12/21 [History] Cholecalciferol [Vitamin D3 (25 Mcg = 1000 Iu)] 25 mcg PO DAILY 02/12/21 [History] Elderberry Fruit and Flower [Black Elderberry 575 mg Cap] 1 cap PO DAILY 02/12/21 [History] Gabapentin [Neurontin] 600 mg PO HS 02/12/21 [History] Insulin Aspart (For Pump) [NovoLOG (For Pump)] 0.01 unit SQ-PUMP CONTINUOUS MDD 90 units 02/12/21 [History] Magnesium 250 mg PO DAILY 02/12/21 [History] Montelukast Sodium [Singulair] 10 mg PO DAILY 02/12/21 [History] Zinc 50 mg PO DAILY 02/12/21 [History] traZODone HCL [Desyrel] 50 mg PO HS 02/12/21 [History] Omeprazole Magnesium [PriLOSEC OTC] 20 mg PO DAILY 02/13/21 [History] Clopidogrel Bisulfate [Plavix] 75 mg PO DAILY #90 tab 02/15/21 [Rx] Rosuvastatin Calcium [Crestor] 10 mg PO DAILY #90 tab 02/15/21 [Rx] Ticagrelor [Brilinta] 90 mg PO BID #60 tab 02/15/21 [Rx] Follow up Appointment(s)/Referral(s): Carlos Mas DO [STAFF PHYSICIAN] - 1 Week Kaz Naranjo MD [Primary Care Provider] - 1-2 days Discharge Disposition: HOME SELF-CARE
== END 2021-02-15 17:34 | disposition home or self-care (01) | DRG 247 ==
LOC: EC 22:24 → 3SCARD 23:00
PROVIDERS: ADMIT Internal Medicine; ATTEND Internal Medicine
PROC: B2181ZZ Fluoroscopy of Left Internal Mammary Bypass Graft using Low Osmolar Contrast (ICD-10-PCS; principal; 2021-02-13 11:22)
PROC: B2131ZZ Fluoroscopy of Multiple Coronary Artery Bypass Grafts using Low Osmolar Contrast (ICD-10-PCS; principal; 2021-02-13 11:22)
PROC: 027034Z Dilation of Coronary Artery, One Artery with Drug-eluting Intraluminal Device, Percutaneous Approach (ICD-10-PCS; principal; 2021-02-13 11:22)
PROC: B2111ZZ Fluoroscopy of Multiple Coronary Arteries using Low Osmolar Contrast (ICD-10-PCS; principal; 2021-02-13 11:22)
PROC: 4A023N7 Measurement of Cardiac Sampling and Pressure, Left Heart, Percutaneous Approach (ICD-10-PCS; principal; 2021-02-13 11:22)
DX: I21.4 Non-ST elevation (NSTEMI) myocardial infarction (principal); I13.0 Hypertensive heart and chronic kidney disease with heart failure and stage 1 through stage 4 chronic kidney disease, or unspecified chronic kidney disease; I25.719 Atherosclerosis of autologous vein coronary artery bypass graft(s) with unspecified angina pectoris; I50.22 Chronic systolic (congestive) heart failure; N18.32 Chronic kidney disease, stage 3b; I25.119 Atherosclerotic heart disease of native coronary artery with unspecified angina pectoris; Z95.1 Presence of aortocoronary bypass graft; E11.22 Type 2 diabetes mellitus with diabetic chronic kidney disease; E11.51 Type 2 diabetes mellitus with diabetic peripheral angiopathy without gangrene; E11.40 Type 2 diabetes mellitus with diabetic neuropathy, unspecified; Z96.41 Presence of insulin pump (external) (internal); Z79.4 Long term (current) use of insulin; E78.5 Hyperlipidemia, unspecified; I25.10 Atherosclerotic heart disease of native coronary artery without angina pectoris; I44.0 Atrioventricular block, first degree; I45.10 Unspecified right bundle-branch block; J44.9 Chronic obstructive pulmonary disease, unspecified; Z79.02 Long term (current) use of antithrombotics/antiplatelets; Z79.82 Long term (current) use of aspirin; Z79.899 Other long term (current) drug therapy; Z88.8 Allergy status to other drugs, medicaments and biological substances; Z20.822 Contact with and (suspected) exposure to COVID-19
CPT/HCPCS: 36415; 80048; 80061; 82565; 83036; 83735; 84484; 85025; 85610; 85730; 87635; 93005; 93270; 93306; 93455; 93970; 94640; 94760; 99285

== ENCOUNTER 2021-02-21 13:30 | Emergency (ER) | payer MEDICARE ==
[2021-02-21 13:38] VITALS: RESP 16; TEMP 98
--- NOTE | 2021-02-21 13:58 | ED ---
SOB HPI - General Source: EMS Mode of arrival: EMS Limitations: no limitations <Cordell Brown - Last Filed: 02/21/21 18:48> <Shawn Saravia - Last Filed: 02/21/21 22:24> - General Chief Complaint: Shortness of Breath Stated Complaint: SOB Time Seen by Provider: 02/21/21 13:52 - History of Present Illness Initial Comments: Patient is a 75-year-old male that presents to the emergency department complaining of increased shortness of breath. He was recently seen at [facility] where he was sent here for further evaluation. He notes that he recently had some stents placed approximately a week to 2 weeks ago and has since not really felt himself. He notes that over the last several days he said shortness of breath. He was in no apparent distress or pain while laying in bed during the exam and interview. She did note that he is taking currently brilinta that is of bridge to Plavix. Patient denied any other symptoms or complaints. He denied any chest pain headache nausea vomiting diarrhea cons tipation fever fatigue chills. (Cordell Brown) - Related Data Home Medications Medication Instructions Recorded Confirmed Ascorbic Acid [Vitamin C] 1,000 mg PO DAILY 02/12/21 02/21/21 Aspirin EC [Ecotrin Low Dose] 81 mg PO DAILY 02/12/21 02/21/21 Carvedilol [Coreg] 12.5 mg PO BID 02/12/21 02/21/21 Cholecalciferol [Vitamin D3 (25 25 mcg PO DAILY 02/12/21 02/21/21 Mcg = 1000 Iu)] Elderberry Fruit and Flower [Black 1 cap PO DAILY 02/12/21 02/21/21 Elderberry 575 mg Cap] Gabapentin [Neurontin] 400 mg PO HS 02/12/21 02/21/21 Insulin Aspart (For Pump) [NovoLOG 0.01 unit SQ-PUMP CONTINUOUS MDD 02/12/21 02/21/21 (For Pump)] 90 units Magnesium 250 mg PO DAILY 02/12/21 02/21/21 Montelukast Sodium [Singulair] 10 mg PO DAILY 02/12/21 02/21/21 Zinc 50 mg PO DAILY 02/12/21 02/21/21 traZODone HCL [Desyrel] 50 mg PO HS 02/12/21 02/21/21 Omeprazole Magnesium [PriLOSEC OTC] 20 mg PO DAILY 02/13/21 02/21/21 Clopidogrel Bisulfate [Plavix] See Taper PO DIRECTED 02/21/21 02/21/21 Rosuvastatin Calcium [Crestor] See Taper PO DIRECTED 02/21/21 02/21/21 Previous Rx's Medication Instructions Recorded Ticagrelor [Brilinta] 90 mg PO BID #60 tab 02/15/21 Allergies Allergy/AdvReac Type Severity Reaction Status Date / Time isosorbide [From Imdur] AdvReac MUSCLE Verified 02/21/21 18:11 WEAKNESS, Losses feeling in legs Aqjojcy-Fpf-Rca Reductase AdvReac MUSCLE Verified 02/21/21 18:11 Inhibitor WEAKNESS, Losses feeling in legs Review of Systems ROS Other: All systems not noted in ROS Statement are negative. <Cordell Brown - Last Filed: 02/21/21 18:48> ROS Other: All systems not noted in ROS Statement are negative. <Shawn Saravia - Last Filed: 02/21/21 22:24> ROS Statement: Those systems with pertinent positive or pertinent negative responses have been documented in the HPI. Past Medical History Past Medical History: Chest Pain / Angina, Syncope History of Any Multi-Drug Resistant Organisms: None Reported Past Surgical History: Coronary Bypass/CABG Additional Past Surgical History / Comment(s): CABG '08 Past Anesthesia/Blood Transfusion Reactions: No Reported Reaction Past Psychological History: No Psychological Hx Reported Smoking Status: Never smoker Past Alcohol Use History: None Reported Past Drug Use History: None Reported - Past Family History Family Family Medical History: No Reported History <Cordell Brown - Last Filed: 02/21/21 18:48> General Exam Limitations: no limitations General appearance: alert, in no apparent distress, obese Head exam: Present: atraumatic, normocephalic, normal inspection Eye exam: Present: normal appearance, PERRL, EOMI. Absent: scleral icterus, conjunctival injection, periorbital swelling ENT exam: Present: normal exam, mucous membranes moist Neck exam: Present: normal inspection Respiratory exam: Present: wheezes (Left middle lobe expiratory, rest of the lung gil normal), other (Nasal cannula in place during the exam.). Absent: respiratory distress, rales, rhonchi, stridor Cardiovascular Exam: Present: regular rate, normal rhythm, normal heart sounds. Absent: systolic murmur, diastolic murmur, rubs, gallop, clicks GI/Abdominal exam: Present: soft, normal bowel sounds. Absent: distended, tenderness, guarding, rebound, rigid Extremities exam: Present: normal inspection, full ROM, normal capillary refill. Absent: tenderness, pedal edema, joint swelling, calf tenderness Neurological exam: Present: alert, oriented X3, CN II-XII intact Psychiatric exam: Present: normal affect, normal mood Skin exam: Present: warm, dry, intact, normal color. Absent: rash <Cordell Brown - Last Filed: 02/21/21 18:48> Course <VictorinoedwarShawn - Last Filed: 02/21/21 22:24> Vital Signs 02/21/21 02/21/21 02/21/21 13:32 14:28 15:38 Temperature 98.0 F Pulse Rate 72 89 Respiratory 16 16 16 Rate Blood Pressure 156/78 154/89 O2 Sat by Pulse 97 100 Oximetry 02/21/21 02/21/21 17:06 18:13 Temperature Pulse Rate 60 64 Respiratory 16 16 Rate Blood Pressure 157/74 154/62 O2 Sat by Pulse 10 L 98 Oximetry - Reevaluation(s) Reevaluation #1: 02/21/21 22:18 Patient's blood glucose has improved while in the ED. Patient's second troponin level however has increased compared to his first level, and given his complaint of dyspnea, I have recommended hospital admission for troponin trending, cardiac monitoring and further evaluation. Patient is adamantly refusing hospital admission, and he states that he wishes to leave AMA at this time. Patient is A and O 4 and completely coherent at this time. I have explained to him the risks of leaving AMA, including further morbidity and even in the worst case situation. Patient is able to verbalize understanding of these risks, and he still wishes to leave AMA at this time. Patient states that he will follow up closely with his primary care provider. Patient was instructed to return to the ED should he change his mind, or should he develop new or worsening symptoms. Patient and both feel comfortable with this plan. Patient was counseled about dyspnea and hyperglycemia. (Shawn Saravia) Medical Decision Making - Lab Data Result diagrams: 02/21/21 14:03 02/21/21 14:03 - EKG Data -: EKG Interpreted by Me - Radiology Data Radiology results: report reviewed, image reviewed <Cordell Brown - Last Filed: 02/21/21 18:48> - Lab Data Result diagrams: 02/21/21 14:03 02/21/21 14:03 - Radiology Data Radiology results: report reviewed (VQ scan: Findings compatible with low probability for pulmonary embolus) <Shawn Saravia - Last Filed: 02/21/21 22:24> - Medical Decision Making 75-year-old male complaining of increased shortness of breath status post placement 1-2 weeks ago. 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 Labs: D-dimer 1.9 to, lactic acid 2.1 creatinine 1.63 Due to elevated d-dimer and reduced kidney function VQ scan ordered. Elevated troponin but decreased from previous: 8.7 down too .87 After fluid lactic acid dropped to 1.7. (Cordell Brown) - Lab Data Lab Results 02/21/21 02/21/21 02/21/21 Range/Units 14:03 14:03 14:03 WBC 6.6 (3.8-10.6) k/uL RBC 4.15 L (4.30-5.90) m/uL Hgb 13.4 (13.0-17.5) gm/dL Hct 39.6 (39.0-53.0) % MCV 95.4 (80.0-100.0) fL MCH 32.2 (25.0-35.0) pg MCHC 33.8 (31.0-37.0) g/dL RDW 12.9 (11.5-15.5) % Plt Count 265 (150-450) k/uL MPV 7.6 Neutrophils % 79 % Lymphocytes % 13 % Monocytes % 6 % Eosinophils % 1 % Basophils % 0 % Neutrophils # 5.2 (1.3-7.7) k/uL Lymphocytes # 0.8 L (1.0-4.8) k/uL Monocytes # 0.4 (0-1.0) k/uL Eosinophils # 0.1 (0-0.7) k/uL Basophils # 0.0 (0-0.2) k/uL PT 10.1 (9.0-12.0) sec INR 0.9 (<1.2) APTT 22.3 (22.0-30.0) sec D-Dimer 1.92 H (<0.60) mg/L FEU Sodium 133 L (137-145) mmol/L Potassium 5.0 (3.5-5.1) mmol/L Chloride 103 (98-107) mmol/L Carbon Dioxide 20 L (22-30) mmol/L Anion Gap 10 mmol/L BUN 30 H (9-20) mg/dL Creatinine 1.63 H (0.66-1.25) mg/dL Est GFR (CKD-EPI)AfAm 46 (>60 ml/min/1.73 sqM) Est GFR (CKD-EPI)NonAf 40 (>60 ml/min/1.73 sqM) Glucose 493 H (74-99) mg/dL POC Glucose (mg/dL) (75-99) mg/dL POC Glu Forensic Structural Engineer ID Lactic Ac Sepsis Rflx Plasma Lactic Acid Hunter (0.7-2.0) mmol/L Calcium 8.8 (8.4-10.2) mg/dL Total Bilirubin 0.7 (0.2-1.3) mg/dL AST 29 (17-59) U/L ALT 22 (4-49) U/L Alkaline Phosphatase 86 (38-126) U/L Troponin I (0.000-0.034) ng/mL NT-Pro-B Natriuret Pep pg/mL Total Protein 6.7 (6.3-8.2) g/dL Albumin 3.6 (3.5-5.0) g/dL 02/21/21 02/21/21 02/21/21 Range/Units 14:03 14:03 14:03 WBC (3.8-10.6) k/uL RBC (4.30-5.90) m/uL Hgb (13.0-17.5) gm/dL Hct (39.0-53.0) % MCV (80.0-100.0) fL MCH (25.0-35.0) pg MCHC (31.0-37.0) g/dL RDW (11.5-15.5) % Plt Count (150-450) k/uL MPV Neutrophils % % Lymphocytes % % Monocytes % % Eosinophils % % Basophils % % Neutrophils # (1.3-7.7) k/uL Lymphocytes # (1.0-4.8) k/uL Monocytes # (0-1.0) k/uL Eosinophils # (0-0.7) k/uL Basophils # (0-0.2) k/uL PT (9.0-12.0) sec INR (<1.2) APTT (22.0-30.0) sec D-Dimer (<0.60) mg/L FEU Sodium (137-145) mmol/L Potassium (3.5-5.1) mmol/L Chloride (98-107) mmol/L Carbon Dioxide (22-30) mmol/L Anion Gap mmol/L BUN (9-20) mg/dL Creatinine (0.66-1.25) mg/dL Est GFR (CKD-EPI)AfAm (>60 ml/min/1.73 sqM) Est GFR (CKD-EPI)NonAf (>60 ml/min/1.73 sqM) Glucose (74-99) mg/dL POC Glucose (mg/dL) (75-99) mg/dL POC Glu Forensic Structural Engineer ID Lactic Ac Sepsis Rflx Plasma Lactic Acid Hunter 2.1 H* (0.7-2.0) mmol/L Calcium (8.4-10.2) mg/dL Total Bilirubin (0.2-1.3) mg/dL AST (17-59) U/L ALT (4-49) U/L Alkaline Phosphatase (38-126) U/L Troponin I 0.873 H* (0.000-0.034) ng/mL NT-Pro-B Natriuret Pep 3400 pg/mL Total Protein (6.3-8.2) g/dL Albumin (3.5-5.0) g/dL 02/21/21 02/21/21 02/21/21 Range/Units 14:42 17:10 19:29 WBC (3.8-10.6) k/uL RBC (4.30-5.90) m/uL Hgb (13.0-17.5) gm/dL Hct (39.0-53.0) % MCV (80.0-100.0) fL MCH (25.0-35.0) pg MCHC (31.0-37.0) g/dL RDW (11.5-15.5) % Plt Count (150-450) k/uL MPV Neutrophils % % Lymphocytes % % Monocytes % % Eosinophils % % Basophils % % Neutrophils # (1.3-7.7) k/uL Lymphocytes # (1.0-4.8) k/uL Monocytes # (0-1.0) k/uL Eosinophils # (0-0.7) k/uL Basophils # (0-0.2) k/uL PT (9.0-12.0) sec INR (<1.2) APTT (22.0-30.0) sec D-Dimer (<0.60) mg/L FEU Sodium (137-145) mmol/L Potassium (3.5-5.1) mmol/L Chloride (98-107) mmol/L Carbon Dioxide (22-30) mmol/L Anion Gap mmol/L BUN (9-20) mg/dL Creatinine (0.66-1.25) mg/dL Est GFR (CKD-EPI)AfAm (>60 ml/min/1.73 sqM) Est GFR (CKD-EPI)NonAf (>60 ml/min/1.73 sqM) Glucose (74-99) mg/dL POC Glucose (mg/dL) 342 H (75-99) mg/dL POC Glu Forensic Structural Engineer ID Sharron Manzanares Lactic Ac Sepsis Rflx Y Plasma Lactic Acid Hunter 1.7 (0.7-2.0) mmol/L Calcium (8.4-10.2) mg/dL Total Bilirubin (0.2-1.3) mg/dL AST (17-59) U/L ALT (4-49) U/L Alkaline Phosphatase (38-126) U/L Troponin I (0.000-0.034) ng/mL NT-Pro-B Natriuret Pep pg/mL Total Protein (6.3-8.2) g/dL Albumin (3.5-5.0) g/dL 02/21/21 Range/Units 20:42 WBC (3.8-10.6) k/uL RBC (4.30-5.90) m/uL Hgb (13.0-17.5) gm/dL Hct (39.0-53.0) % MCV (80.0-100.0) fL MCH (25.0-35.0) pg MCHC (31.0-37.0) g/dL RDW (11.5-15.5) % Plt Count (150-450) k/uL MPV Neutrophils % % Lymphocytes % % Monocytes % % Eosinophils % % Basophils % % Neutrophils # (1.3-7.7) k/uL Lymphocytes # (1.0-4.8) k/uL Monocytes # (0-1.0) k/uL Eosinophils # (0-0.7) k/uL Basophils # (0-0.2) k/uL PT (9.0-12.0) sec INR (<1.2) APTT (22.0-30.0) sec D-Dimer (<0.60) mg/L FEU Sodium (137-145) mmol/L Potassium (3.5-5.1) mmol/L Chloride (98-107) mmol/L Carbon Dioxide (22-30) mmol/L Anion Gap mmol/L BUN (9-20) mg/dL Creatinine (0.66-1.25) mg/dL Est GFR (CKD-EPI)AfAm (>60 ml/min/1.73 sqM) Est GFR (CKD-EPI)NonAf (>60 ml/min/1.73 sqM) Glucose (74-99) mg/dL POC Glucose (mg/dL) (75-99) mg/dL POC Glu Forensic Structural Engineer ID Lactic Ac Sepsis Rflx Plasma Lactic Acid Hunter (0.7-2.0) mmol/L Calcium (8.4-10.2) mg/dL Total Bilirubin (0.2-1.3) mg/dL AST (17-59) U/L ALT (4-49) U/L Alkaline Phosphatase (38-126) U/L Troponin I 1.030 H* (0.000-0.034) ng/mL NT-Pro-B Natriuret Pep pg/mL Total Protein (6.3-8.2) g/dL Albumin (3.5-5.0) g/dL - EKG Data EKG Comments: Ventricular rate 67 bpm, VA interval 424 ms, QRS duration 140 ms, QT/QTc 472/498 ms, Q-RT axes 71/-79/-10. Sinus rhythm with first-degree AV block, left axis deviation, right bundle branch block, abnormal ECG. (Cordell Brown) - Radiology Data Chest x-ray: Bibasilar opacities, probably atelectasis. Small left pleural effusion. (Cordell Brown) Disposition <Cordell Brown - Last Filed: 02/21/21 18:48> Is patient prescribed a controlled substance at d/c from ED?: No Time of Disposition: 22:16 <Shawn Saravia - Last Filed: 02/21/21 22:24> Clinical Impression: Dyspnea, Hyperglycemia, Elevated troponin Disposition: Left Against Medical Advice Instructions (If sedation given, give patient instructions): Dyspnea (ED), Diabetic Hyperglycemia (ED) Additional Instructions: Return to the ER immediately should you change your mind, or should you develop new or worsening symptoms. Follow up closely with your primary care provider. Referrals: Kaz Naranjo MD [Primary Care Provider] - 1-2 days
[2021-02-21 14:21] LABS: Basophils % (A) 0 %; Eosinophils # (A) 0.1 k/uL (0-0.7); Eosinophils % (A) 1 %; HCT 39.6 % (39.0-53.0); HGB 13.4 gm/dL (13.0-17.5); Lymphocytes # (A) 0.8 k/uL (1.0-4.8); Lymphocytes % (A) 13 %; MCH 32.2 pg (25.0-35.0); MCHC 33.8 g/dL (31.0-37.0); MCV 95.4 fL (80.0-100.0); Mean Platelet Volume 7.6; Monocytes # (A) 0.4 k/uL (0-1.0); Monocytes % (A) 6 %; Neutrophils # (A) 5.2 k/uL (1.3-7.7); Neutrophils % (A) 79 %; Platelet Count 265 k/uL (150-450); RBC 4.15 m/uL (4.30-5.90); RDW 12.9 % (11.5-15.5); WBC 6.6 k/uL (3.8-10.6)
--- NOTE | 2021-02-21 14:31 | XR ---
EXAMINATION TYPE: XR chest 2V DATE OF EXAM: 02/21/2021 COMPARISON: 02/17/2020. HISTORY: Shortness of breath status post recent stent. TECHNIQUE: Frontal and lateral views of the chest are obtained. FINDINGS: There is mild left greater than right bibasilar hazy opacities with small left pleural eff usion. No pneumothorax seen. The cardiac silhouette size is enlarged. The osseous structures are i ntact. IMPRESSION: Bibasilar opacities, probably atelectasis. Small left pleural effusion.
[2021-02-21 14:38] LABS: INR 0.9 (<1.2); Partial Thromboplastin Time 22.3 sec (22.0-30.0); Prothrombin Time 10.1 sec (9.0-12.0)
[2021-02-21 14:41] LABS: Albumin 3.6 g/dL (3.5-5.0); Calcium 8.8 mg/dL (8.4-10.2); Total Bilirubin 0.7 mg/dL (0.2-1.3); Total Protein 6.7 g/dL (6.3-8.2)
[2021-02-21 14:45] LABS: D-Dimer 1.92 mg/L FEU (<0.60)
[2021-02-21 18:14] VITALS: BP 154/62; PULSE 64
[2021-02-21] MEDS ORDERED: INSULIN REGULAR 100 UNIT/ML VIAL SQ STA (19:21)
--- NOTE | 2021-02-21 19:22 | NM ---
EXAMINATION TYPE: NM pul vent and perfuse DATE OF EXAM: 02/21/2021 COMPARISON: Same-day radiograph. HISTORY: Difficulty breathing. TECHNIQUE: Utilizing inhalation of 68.3 mCi Tc 99m DTPA aerosol and intravenous injection of 5.3 mCi of Tc 99m MAA, ventilation and perfusion images are acquired post injection in multiple projections. FINDINGS: There are bilateral multiple matched ventilation/perfusion defects predominantly in the upper lobe on the right and upper and lower lobes on the left. Same-day radiograph demonstrates small pleural effu sions without significant infiltrate. IMPRESSION: Findings compatible with low probability for pulmonary embolus.
[2021-02-21 19:31] LABS: Glucose,Whole Blood 342 mg/dL (75-99)
== END 2021-02-21 22:30 | disposition left against medical advice (07) ==
LOC: EC 13:30
DX: R06.02 Shortness of breath (principal); R73.9 Hyperglycemia, unspecified; Z79.02 Long term (current) use of antithrombotics/antiplatelets; Z79.82 Long term (current) use of aspirin; Z95.1 Presence of aortocoronary bypass graft
CPT/HCPCS: 36415; 93005; 85379; 83880; 80053; 83605; 84484; 85025; 85610; 85730; 71046; 78582; 99285; A9540; A9567

== ENCOUNTER 2021-04-27 20:20 | Observation (INO) | payer MEDICARE ==
[2021-04-27 20:31] LABS: Glucose,Whole Blood 447 mg/dL (75-99)
[2021-04-27] MEDS ORDERED: SODIUM CHLORIDE 0.9% 1,000 ML IV STA (20:35)
--- NOTE | 2021-04-27 20:43 | ED ---
General Adult HPI - General Chief complaint: Recheck/Abnormal Lab/Rx Stated complaint: Hyperglycemia Time Seen by Provider: 04/27/21 20:23 Source: patient, EMS, RN notes reviewed Mode of arrival: EMS Limitations: no limitations - History of Present Illness Initial comments: 75-year-old male with history of IDDM, SC, syncope presents to the emergency [facility] for chief complaint of hyperglycemia. Patient reports that his glucometer read over 600 today. Patient states he gave himself 40 units above his baseline insulin needed throughout the day. Patient was given himself 6 units of NovoLog about 2 hours ago. Patient otherwise feels well. CBG at triage was 447. Patient did receive a 400 mL bolus EMS.Patient has no other complaints at this time including shortness of breath, chest pain, abdominal pain, nausea or vomiting, headache, or visual changes. - Related Data Home Medications Medication Instructions Recorded Confirmed Ascorbic Acid [Vitamin C] 1,000 mg PO DAILY 02/12/21 04/27/21 Aspirin EC [Ecotrin Low Dose] 81 mg PO DAILY 02/12/21 04/27/21 Carvedilol [Coreg] 12.5 mg PO BID 02/12/21 04/27/21 Cholecalciferol [Vitamin D3 (25 25 mcg PO DAILY 02/12/21 04/27/21 Mcg = 1000 Iu)] Insulin Aspart (For Pump) [NovoLOG 0.01 unit SQ-PUMP CONTINUOUS MDD 02/12/21 04/27/21 (For Pump)] 90 units Magnesium 250 mg PO DAILY 02/12/21 04/27/21 Montelukast Sodium [Singulair] 10 mg PO DAILY 02/12/21 04/27/21 Zinc 50 mg PO DAILY 02/12/21 04/27/21 traZODone HCL [Desyrel] 50 mg PO HS 02/12/21 04/27/21 Omeprazole Magnesium [PriLOSEC OTC] 20 mg PO DAILY 02/13/21 04/27/21 Clopidogrel Bisulfate [Plavix] 75 mg PO DAILY 02/21/21 04/27/21 Rosuvastatin Calcium [Crestor] 10 mg PO DAILY 02/21/21 04/27/21 Artichoke Supplement 1 tab PO DAILY 04/27/21 04/27/21 Fluticasone/Umeclidin/Vilanter 1 puff INHALATION RT-BID 04/27/21 04/27/21 [Trelegy Ellipta 100-62.5-25] Gabapentin [Neurontin] 400 mg PO HS 04/27/21 04/27/21 Lutein 10 mg PO DAILY 04/27/21 04/27/21 Allergies Allergy/AdvReac Type Severity Reaction Status Date / Time isosorbide [From Imdur] AdvReac MUSCLE Verified 04/27/21 21:15 WEAKNESS, Losses feeling in legs Cpqzwtz-Lex-Mbs Reductase AdvReac MUSCLE Verified 04/27/21 21:15 Inhibitor WEAKNESS, Losses feeling in legs Review of Systems ROS Statement: Those systems with pertinent positive or pertinent negative responses have been documented in the HPI. ROS Other: All systems not noted in ROS Statement are negative. Past Medical History Past Medical History: Chest Pain / Angina, Diabetes Mellitus, Syncope History of Any Multi-Drug Resistant Organisms: None Reported Past Surgical History: Coronary Bypass/CABG Additional Past Surgical History / Comment(s): CABG '08 Past Anesthesia/Blood Transfusion Reactions: No Reported Reaction Past Psychological History: No Psychological Hx Reported Smoking Status: Never smoker Past Alcohol Use History: None Reported Past Drug Use History: None Reported - Past Family History Family Family Medical History: No Reported History General Exam Limitations: no limitations General appearance: alert, in no apparent distress Head exam: Present: atraumatic Eye exam: Present: normal appearance, PERRL, EOMI. Absent: scleral icterus, conjunctival injection, periorbital swelling ENT exam: Present: normal exam, mucous membranes moist Neck exam: Present: normal inspection. Absent: tenderness, meningismus, lymphadenopathy Respiratory exam: Present: normal lung sounds bilaterally. Absent: respiratory distress, wheezes, rales, rhonchi, stridor Cardiovascular Exam: Present: regular rate, normal rhythm, normal heart sounds. Absent: systolic murmur, diastolic murmur, rubs, gallop, clicks GI/Abdominal exam: Present: soft, normal bowel sounds. Absent: distended, tenderness, guarding, rebound, rigid Neurological exam: Present: alert Course Vital Signs 04/27/21 04/27/21 20:21 21:24 Temperature 97.6 F Pulse Rate 60 70 Respiratory 18 18 Rate Blood Pressure 154/67 136/62 O2 Sat by Pulse 97 96 Oximetry Medical Decision Making - Medical Decision Making Patient's glucose in the 400s. Acetone positive. CO2 18. Patient is also dehydrated. Patient will be admitted for sliding scale insulin and fluids. - Lab Data Result diagrams: 04/27/21 20:53 04/27/21 20:53 Lab Results 04/27/21 04/27/21 04/27/21 Range/Units 20:28 20:53 20:53 WBC 10.5 (3.8-10.6) k/uL RBC 4.32 (4.30-5.90) m/uL Hgb 13.2 (13.0-17.5) gm/dL Hct 40.6 (39.0-53.0) % MCV 94.0 (80.0-100.0) fL MCH 30.7 (25.0-35.0) pg MCHC 32.6 (31.0-37.0) g/dL RDW 12.3 (11.5-15.5) % Plt Count 308 (150-450) k/uL MPV 7.7 Neutrophils % 83 % Lymphocytes % 9 % Monocytes % 7 % Eosinophils % 0 % Basophils % 0 % Neutrophils # 8.6 H (1.3-7.7) k/uL Lymphocytes # 0.9 L (1.0-4.8) k/uL Monocytes # 0.7 (0-1.0) k/uL Eosinophils # 0.0 (0-0.7) k/uL Basophils # 0.0 (0-0.2) k/uL Sodium (137-145) mmol/L Potassium (3.5-5.1) mmol/L Chloride (98-107) mmol/L Carbon Dioxide (22-30) mmol/L Anion Gap mmol/L BUN (9-20) mg/dL Creatinine (0.66-1.25) mg/dL Est GFR (CKD-EPI)AfAm (>60 ml/min/1.73 sqM) Est GFR (CKD-EPI)NonAf (>60 ml/min/1.73 sqM) Glucose (74-99) mg/dL POC Glucose (mg/dL) 447 H (75-99) mg/dL POC Glu Bark [employer] Operator ID Seb, Adilia Calcium (8.4-10.2) mg/dL Total Bilirubin (0.2-1.3) mg/dL AST (17-59) U/L ALT (4-49) U/L Alkaline Phosphatase (38-126) U/L Total Protein (6.3-8.2) g/dL Albumin (3.5-5.0) g/dL Urine Color Yellow Urine Appearance Clear (Clear) Urine pH 5.0 (5.0-8.0) Ur Specific [place] 1.022 (1.001-1.035) Urine Protein 1+ H (Negative) Urine Glucose (UA) 4+ H (Negative) Urine Ketones 1+ H (Negative) Urine Blood Negative (Negative) Urine Nitrite Negative (Negative) Urine Bilirubin Negative (Negative) Urine Urobilinogen 2.0 (<2.0) mg/dL Ur Leukocyte Esterase Negative (Negative) Urine RBC <1 (0-5) /hpf Urine WBC 2 (0-5) /hpf Ur Squamous Epith Cells <1 (0-4) /hpf Hyaline Casts 15 H (0-2) /lpf Urine Mucus Rare H (None) /hpf Acetone, Qual (Negative) 04/27/21 04/27/21 Range/Units 20:53 21:42 WBC (3.8-10.6) k/uL RBC (4.30-5.90) m/uL Hgb (13.0-17.5) gm/dL Hct (39.0-53.0) % MCV (80.0-100.0) fL MCH (25.0-35.0) pg MCHC (31.0-37.0) g/dL RDW (11.5-15.5) % Plt Count (150-450) k/uL MPV Neutrophils % % Lymphocytes % % Monocytes % % Eosinophils % % Basophils % % Neutrophils # (1.3-7.7) k/uL Lymphocytes # (1.0-4.8) k/uL Monocytes # (0-1.0) k/uL Eosinophils # (0-0.7) k/uL Basophils # (0-0.2) k/uL Sodium 131 L (137-145) mmol/L Potassium 4.5 (3.5-5.1) mmol/L Chloride 97 L (98-107) mmol/L Carbon Dioxide 18 L (22-30) mmol/L Anion Gap 16 mmol/L BUN 35 H (9-20) mg/dL Creatinine 1.89 H (0.66-1.25) mg/dL Est GFR (CKD-EPI)AfAm 39 (>60 ml/min/1.73 sqM) Est GFR (CKD-EPI)NonAf 33 (>60 ml/min/1.73 sqM) Glucose 462 H (74-99) mg/dL POC Glucose (mg/dL) 434 H (75-99) mg/dL POC Glu Bark [employer] Operator ID Joleen Lu Calcium 8.7 (8.4-10.2) mg/dL Total Bilirubin 0.7 (0.2-1.3) mg/dL AST 42 (17-59) U/L ALT 20 (4-49) U/L Alkaline Phosphatase 104 (38-126) U/L Total Protein 6.5 (6.3-8.2) g/dL Albumin 3.6 (3.5-5.0) g/dL Urine Color Urine Appearance (Clear) Urine pH (5.0-8.0) Ur Specific [place] (1.001-1.035) Urine Protein (Negative) Urine Glucose (UA) (Negative) Urine Ketones (Negative) Urine Blood (Negative) Urine Nitrite (Negative) Urine Bilirubin (Negative) Urine Urobilinogen (<2.0) mg/dL Ur Leukocyte Esterase (Negative) Urine RBC (0-5) /hpf Urine WBC (0-5) /hpf Ur Squamous Epith Cells (0-4) /hpf Hyaline Casts (0-2) /lpf Urine Mucus (None) /hpf Acetone, Qual Positive (Negative) Disposition Clinical Impression: Hyperglycemia Disposition: ADMITTED IP TO THIS HOSP Is patient prescribed a controlled substance at d/c from ED?: No Time of Disposition: 22:29
[2021-04-27 21:02] LABS: Basophils % (A) 0 %; Eosinophils % (A) 0 %; HCT 40.6 % (39.0-53.0); HGB 13.2 gm/dL (13.0-17.5); Lymphocytes # (A) 0.9 k/uL (1.0-4.8); Lymphocytes % (A) 9 %; MCH 30.7 pg (25.0-35.0); MCHC 32.6 g/dL (31.0-37.0); Mean Platelet Volume 7.7; Monocytes # (A) 0.7 k/uL (0-1.0); Monocytes % (A) 7 %; Neutrophils # (A) 8.6 k/uL (1.3-7.7); Neutrophils % (A) 83 %; Platelet Count 308 k/uL (150-450); RBC 4.32 m/uL (4.30-5.90); RDW 12.3 % (11.5-15.5); WBC 10.5 k/uL (3.8-10.6)
[2021-04-27 21:04] LABS: Appearance,Urine Clear (Clear); Bilirubin,Urine Negative (Negative); Blood,Urine Negative (Negative); Color,Urine Yellow; Glucose,Urine (UA) 4+ (Negative); Hyaline Casts,Urine 15 /lpf (0-2); Ketones,Urine 1+ (Negative); Leukocyte Esterase,Urine Negative (Negative); Mucus,Urine Rare /hpf; Nitrite,Urine Negative (Negative); Protein,Urine 1+ (Negative); RBC,Urine <1 /hpf (0-5); Specific Gravity,Urine 1.022 (1.001-1.035); Squamous Epithelial Cell,Urine <1 /hpf (0-4); WBC,Urine 2 /hpf (0-5)
[2021-04-27 21:12] LABS: ALT 20 U/L (4-49); AST 42 U/L (17-59); African American GFR (CKD) 39 (>60 ml/min/1.73 sqM); Albumin 3.6 g/dL (3.5-5.0); Alkaline Phosphatase 104 U/L (38-126); Anion Gap 16 mmol/L; Blood Urea Nitrogen 35 mg/dL (9-20); Calcium 8.7 mg/dL (8.4-10.2); Carbon Dioxide 18 mmol/L (22-30); Chloride 97 mmol/L (98-107); Glucose 462 mg/dL (74-99); Non-African American GFR(CKD) 33 (>60 ml/min/1.73 sqM); Potassium 4.5 mmol/L (3.5-5.1); Sodium 131 mmol/L (137-145); Total Bilirubin 0.7 mg/dL (0.2-1.3); Total Protein 6.5 g/dL (6.3-8.2)
[2021-04-27 21:44] LABS: Glucose,Whole Blood 434 mg/dL (75-99)
[2021-04-27] MEDS ORDERED: NALOXONE 0.4 MG/ML 1 ML VIAL IV PRN (22:14)
[2021-04-27] MEDS: SODIUM CHLORIDE 0.9% 1,000 ML IV SCH (22:32)
[2021-04-27 22:42] LABS: Glucose,Whole Blood 355 mg/dL (75-99)
--- NOTE | 2021-04-27 22:42 | P.HPIM ---
History of Present Illness H&P Date: 04/27/21 Patient is a 75-year-old male with a PMH of type II DM with peripheral neuropathy, chronic kidney disease, COPD, and coronary artery disease who presented to the emergency room due to poorly controlled blood glucose. The patient reports that over the past 2 weeks, his blood glucose has gradually been trending up. He notes that upon waking up this morning, his fasting blood glucose was greater than 600. He took his routine insulin doses and was trying to avoid sugary foods in hopes that it would come down. He however noted during his evening check that his sugar was still in the 500s, at which time he activated EMS. Aside from his high blood glucose, he reported feeling well and denied any active complaints. Reports chronic lower extremity pain secondary to his peripheral neuropathy was is unchanged. Denied chest discomfort, shortness of breath, fever, chills, cough. Denied nausea, vomiting, abdominal pain, diarrhea. Deny weakness, numbness, tingling, visual changes. In the emergency room, capillary blood glucose upon presentation was 447, sodium 131, CO2 18, anion gap 16, BUN 35, creatinine 1.89, UA with 4+ glucose and 1+ ketones, and acetone positive. The patient uses an insulin pump with basal rate 1.35 U/hr. The patient reported having taken NovoLog 6 units 2 hours prior to presentation via bolus via pump. Review of systems: Pertinent positives and negatives as discussed in HPI, a complete review of systems was performed and all other systems are negative. Physical examination: General: non toxic, no distress, appears at stated age, morbidly obese Derm: Left first toe ulcer with scab, no unusual ecchymoses, warm, dry Head: atraumatic, normocephalic, symmetric Eyes: EOMI, no lid lag, anicteric sclera, pupils equal round reactive to light ENT: Nose and ears atraumatic, no thrush, no pharyngeal erythema Neck: No thyromegaly, no cervical lymphadenopathy, trachea midline, supple Mouth: no lip lesion, mucus membranes moist Cardiovascular: S1S2 reg, no murmur, positive posterior tibial pulse bilateral, no edema, capillary refill less than 2 seconds Lungs: CTA bilateral, no rhonchi, no rales , no accessory muscle use Abdominal: soft, nontender to palpation, no guarding, no appreciable organomegaly, normal bowel sounds Ext: no gross muscle atrophy, muscle strength 5 out of 5 in all 4 extremities grossly, no contractures, Neuro: CN II-XI grossly intact, light touch intact all 4 extremities, finger to nose within normal limits, Psych: Alert, oriented, appropriate affect Assessment/plan Mild diabetic ketoacidosis -Check A1c -Lispro insulin sliding scale and blood glucose monitoring -Turn off the patient's insulin pump -Levemir 30 U qhs (currently receiving 32 units every 24 hours via pump) -Monitor electrolytes -IVFs -inclusion special educator consult Hyponatremia, likely pseudo in setting of hyperglycemia -Monitor BMP for now Chronic conditions: COPD, coronary artery disease -Continue with home meds DVT prophylaxis -Heparin subq The patient is admitted with an anticipated less than 2 midnight stay for evaluation of hyperglycemia CODE STATUS: FUll Code Discussed with: Patient Anticipated discharge date: in am Anticipated discharge place: Home A total of 40 minutes was spent on the care of this complex patient more than 50% of the time was spent in counseling and care coordination. Past Medical History Past Medical History: Chest Pain / Angina, Diabetes Mellitus, Syncope History of Any Multi-Drug Resistant Organisms: None Reported Past Surgical History: Coronary Bypass/CABG Additional Past Surgical History / Comment(s): CABG '08 Past Anesthesia/Blood Transfusion Reactions: No Reported Reaction Past Psychological History: No Psychological Hx Reported Smoking Status: Never smoker Past Alcohol Use History: None Reported Past Drug Use History: None Reported - Past Family History Family Family Medical History: Hypertension Medications and Allergies Home Medications Medication Instructions Recorded Confirmed Type Ascorbic Acid [Vitamin C] 1,000 mg PO DAILY 02/12/21 04/27/21 History Aspirin EC [Ecotrin Low Dose] 81 mg PO DAILY 02/12/21 04/27/21 History Carvedilol [Coreg] 12.5 mg PO BID 02/12/21 04/27/21 History Cholecalciferol [Vitamin D3 (25 25 mcg PO DAILY 02/12/21 04/27/21 History Mcg = 1000 Iu)] Insulin Aspart (For Pump) [NovoLOG 0.01 unit SQ-PUMP CONTINUOUS MDD 02/12/21 04/27/21 History (For Pump)] 90 units Magnesium 250 mg PO DAILY 02/12/21 04/27/21 History Montelukast Sodium [Singulair] 10 mg PO DAILY 02/12/21 04/27/21 History Zinc 50 mg PO DAILY 02/12/21 04/27/21 History traZODone HCL [Desyrel] 50 mg PO HS 02/12/21 04/27/21 History Omeprazole Magnesium [PriLOSEC OTC] 20 mg PO DAILY 02/13/21 04/27/21 History Clopidogrel Bisulfate [Plavix] 75 mg PO DAILY 02/21/21 04/27/21 History Rosuvastatin Calcium [Crestor] 10 mg PO DAILY 02/21/21 04/27/21 History Artichoke Supplement 1 tab PO DAILY 04/27/21 04/27/21 History Fluticasone/Umeclidin/Vilanter 1 puff INHALATION RT-BID 04/27/21 04/27/21 History [Trelegy Ellipta 100-62.5-25] Gabapentin [Neurontin] 400 mg PO HS 04/27/21 04/27/21 History Lutein 10 mg PO DAILY 04/27/21 04/27/21 History Allergies Allergy/AdvReac Type Severity Reaction Status Date / Time isosorbide [From Imdur] AdvReac MUSCLE Verified 04/27/21 21:15 WEAKNESS, Losses feeling in legs Dcoyufm-Rss-Luy Reductase AdvReac MUSCLE Verified 04/27/21 21:15 Inhibitor WEAKNESS, Losses feeling in legs Physical Exam Vitals: Vital Signs Temp Pulse Resp BP Pulse Ox 04/27/21 21:24 70 18 136/62 96 04/27/21 20:21 97.6 F 60 18 154/67 97 Intake and Output 04/27/21 04/27/21 04/27/21 06:59 14:59 22:59 Other: Weight 80.739 kg Results CBC & Chem 7: 04/27/21 20:53 04/27/21 20:53 Labs: Abnormal Lab Results - Last 24 Hours (Table) 04/27/21 04/27/21 04/27/21 Range/Units 20:28 20:53 20:53 Neutrophils # 8.6 H (1.3-7.7) k/uL Lymphocytes # 0.9 L (1.0-4.8) k/uL Sodium (137-145) mmol/L Chloride (98-107) mmol/L Carbon Dioxide (22-30) mmol/L BUN (9-20) mg/dL Creatinine (0.66-1.25) mg/dL Glucose (74-99) mg/dL POC Glucose (mg/dL) 447 H (75-99) mg/dL Urine Protein 1+ H (Negative) Urine Glucose (UA) 4+ H (Negative) Urine Ketones 1+ H (Negative) Hyaline Casts 15 H (0-2) /lpf Urine Mucus Rare H (None) /hpf 04/27/21 04/27/21 Range/Units 20:53 21:42 Neutrophils # (1.3-7.7) k/uL Lymphocytes # (1.0-4.8) k/uL Sodium 131 L (137-145) mmol/L Chloride 97 L (98-107) mmol/L Carbon Dioxide 18 L (22-30) mmol/L BUN 35 H (9-20) mg/dL Creatinine 1.89 H (0.66-1.25) mg/dL Glucose 462 H (74-99) mg/dL POC Glucose (mg/dL) 434 H (75-99) mg/dL Urine Protein (Negative) Urine Glucose (UA) (Negative) Urine Ketones (Negative) Hyaline Casts (0-2) /lpf Urine Mucus (None) /hpf
[2021-04-27] MEDS ORDERED: INSULIN DETEMIR (LEVEMIR) 100 UNIT/ML SYR SQ SCH (22:45)
[2021-04-27] MEDS ORDERED: traZODone HCL 50 MG TAB PO SCH (23:00)
[2021-04-28] MEDS ORDERED: INSULIN REGULAR 100 UNIT/ML VIAL (IM/SQ) ONE (01:45)
[2021-04-28] MEDS ORDERED: GABAPENTIN 300 MG CAP ONE (01:45)
[2021-04-28 05:25] LABS: African American GFR (CKD) 42 (>60 ml/min/1.73 sqM); Anion Gap 10 mmol/L; Blood Urea Nitrogen 36 mg/dL (9-20); Calcium 8.6 mg/dL (8.4-10.2); Carbon Dioxide 22 mmol/L (22-30); Chloride 98 mmol/L (98-107); Glucose 359 mg/dL (74-99); Magnesium 1.9 mg/dL (1.6-2.3); Non-African American GFR(CKD) 36 (>60 ml/min/1.73 sqM); Potassium 5.1 mmol/L (3.5-5.1); Sodium 130 mmol/L (137-145)
[2021-04-28 05:57] LABS: Glucose,Whole Blood 291 mg/dL (75-99)
[2021-04-28 07:10] LABS: African American GFR (CKD) 45 (>60 ml/min/1.73 sqM); Anion Gap 10 mmol/L; Blood Urea Nitrogen 36 mg/dL (9-20); Calcium 8.3 mg/dL (8.4-10.2); Carbon Dioxide 20 mmol/L (22-30); Chloride 101 mmol/L (98-107); Glucose 269 mg/dL (74-99); Non-African American GFR(CKD) 39 (>60 ml/min/1.73 sqM); Potassium 4.5 mmol/L (3.5-5.1); Sodium 131 mmol/L (137-145)
[2021-04-28] MEDS: HEPARIN SODIUM,PORCINE/PF 5,000 UNIT/0.5 ML SYRINGE SQ SCH ×2 (07:25→08:15)
[2021-04-28] MEDS: INSULIN ASPART (NovoLOG) 100 UNIT/ML VIAL SQ SCH ×2 (07:34→12:38)
[2021-04-28 07:49] LABS: Glucose,Whole Blood 182 mg/dL (75-99)
[2021-04-28] MEDS ORDERED: SYMBICORT 80-4.5 MCG INHALER INHALATION SCH (08:00)
[2021-04-28] MEDS: ATORVASTATIN 20 MG TAB PO SCH ×2 (08:13)
[2021-04-28] MEDS: IPRATROPIUM 0.5 MG/2.5 ML NEBU INHALATION SCH ×2 (08:35→11:34)
[2021-04-28] MEDS ORDERED: MONTELUKAST 10 MG TAB PO SCH (09:00)
[2021-04-28] MEDS ORDERED: CLOPIDOGREL 75 MG TAB PO SCH (09:00)
[2021-04-28] MEDS ORDERED: ASPIRIN 81 MG PO SCH (09:00)
[2021-04-28] MEDS ORDERED: carvediloL 12.5 MG TAB PO SCH (09:00)
[2021-04-28] MEDS ORDERED: PANTOPRAZOLE 40 MG TABLET PO STA (09:55)
[2021-04-28 10:27] LABS: Basophils % (A) 0 %; Eosinophils # (A) 0.2 k/uL (0-0.7); Eosinophils % (A) 1 %; HCT 37.6 % (39.0-53.0); HGB 12.4 gm/dL (13.0-17.5); Lymphocytes # (A) 1.1 k/uL (1.0-4.8); Lymphocytes % (A) 8 %; MCH 31.1 pg (25.0-35.0); MCHC 32.9 g/dL (31.0-37.0); MCV 94.6 fL (80.0-100.0); Mean Platelet Volume 7.8; Monocytes # (A) 0.8 k/uL (0-1.0); Monocytes % (A) 6 %; Neutrophils # (A) 11.5 k/uL (1.3-7.7); Neutrophils % (A) 83 %; Platelet Count 302 k/uL (150-450); RBC 3.97 m/uL (4.30-5.90); RDW 12.5 % (11.5-15.5); WBC 13.8 k/uL (3.8-10.6)
[2021-04-28 11:02] LABS: African American GFR (CKD) 46 (>60 ml/min/1.73 sqM); Anion Gap 6 mmol/L; Blood Urea Nitrogen 35 mg/dL (9-20); Calcium 8.5 mg/dL (8.4-10.2); Carbon Dioxide 23 mmol/L (22-30); Chloride 104 mmol/L (98-107); Glucose 278 mg/dL (74-99); Magnesium 1.8 mg/dL (1.6-2.3); Non-African American GFR(CKD) 40 (>60 ml/min/1.73 sqM); Potassium 4.4 mmol/L (3.5-5.1); Sodium 133 mmol/L (137-145)
[2021-04-28] MEDS: SODIUM CHLORIDE 0.9% 1,000 ML IV SCH (12:32)
[2021-04-28 12:35] LABS: Glucose,Whole Blood 357 mg/dL (75-99)
[2021-04-28 12:36] VITALS: BP 141/69; PULSE 59; RESP 16; TEMP 98.7
[2021-04-28 13:41] LABS: Hemoglobin A1C 9.2 % (4.0-6.0)
--- NOTE | 2021-04-28 13:58 | P.DS ---
Providers Date of admission: 04/27/21 21:53 Expected date of discharge: 04/28/21 Attending physician: Vincenzo Quezada MD Primary care physician: [facility] Course: Patient is a 75-year-old male with a PMH of type II DM with peripheral neuropathy, chronic kidney disease, COPD, and coronary artery disease who presented to the emergency room due to poorly controlled blood glucose. The patient reports that over the past 2 weeks, his blood glucose has gradually been trending up. He notes that upon waking up this morning, his fasting blood glucose was greater than 600. He took his routine insulin doses and was trying to avoid sugary foods in hopes that it would come down. He however noted during his evening check that his sugar was still in the 500s, at which time he activated EMS. Aside from his high blood glucose, he reported feeling well and denied any active complaints. Reports chronic lower extremity pain secondary to his peripheral neuropathy was is unchanged. Denied chest discomfort, shortness of breath, fever, chills, cough. Denied nausea, vomiting, abdominal pain, diarrhea. Deny weakness, numbness, tingling, visual changes. In the emergency room, capillary blood glucose upon presentation was 447, sodium 131, CO2 18, anion gap 16, BUN 35, creatinine 1.89, UA with 4+ glucose and 1+ ketones, and acetone positive. The patient uses an insulin pump with basal rate 1.35 U/hr. The patient reported having taken NovoLog 6 units 2 hours prior to presentation via bolus via pump. Mild diabetic ketoacidosis Patient was started on levemir 30U qHS in addition to his pump which is used predominantly for bolus. He was also started on IVF. By following day, patient reported symptomatic resolution, with no n/v/abd pain. Electrolytes showed improvement in Na, stable K, no AGAP. Sugars were better controlled at time of discharge. A1c was 9.2%. I prescribed levemir injectable pens with instructions to dose 30u daily of long-acting. I also recommended early f/u with endocrinology w/i 1 week following hospitalization. Chronic conditions: COPD, coronary artery disease -No changes to home meds, except as above. Assessment: Gen: awake, alert HEENT: normocephalic, atraumatic, good hearing acuity, moist mucous membranes Resp: good air exchange, breathing comfortably with no accessory muscle use CVS: good distal perfusion x 4, GI: soft, NTTP, ND : no SPT, no CVAT, power catheter not present MSK: no pitting edema, no clubbing Neuro: non-focal, moving all extremities Psych: cooperative, euthymic mood Patient Condition at Discharge: Good Plan - Discharge Summary New Discharge Prescriptions: New Insulin Detemir (Levemir) [Levemir] 30 unit SQ HS #9 syr Continue Aspirin EC [Ecotrin Low Dose] 81 mg PO DAILY Insulin Aspart (For Pump) [NovoLOG (For Pump)] 0.01 unit SQ-PUMP CONTINUOUS MDD 90 units Cholecalciferol [Vitamin D3 (25 Mcg = 1000 Iu)] 25 mcg PO DAILY Carvedilol [Coreg] 12.5 mg PO BID Omeprazole Magnesium [PriLOSEC OTC] 20 mg PO DAILY Lutein 10 mg PO DAILY Gabapentin [Neurontin] 400 mg PO HS Zinc 50 mg PO DAILY Magnesium 250 mg PO DAILY Montelukast Sodium [Singulair] 10 mg PO DAILY Ascorbic Acid [Vitamin C] 1,000 mg PO DAILY traZODone HCL [Desyrel] 50 mg PO HS Clopidogrel Bisulfate [Plavix] 75 mg PO DAILY Rosuvastatin Calcium [Crestor] 10 mg PO DAILY Fluticasone/Umeclidin/Vilanter [Trelegy Ellipta 100-62.5-25] 1 puff INHALATION RT-BID Artichoke Supplement 1 tab PO DAILY Discharge Medication List Ascorbic Acid [Vitamin C] 1,000 mg PO DAILY 02/12/21 [History] Aspirin EC [Ecotrin Low Dose] 81 mg PO DAILY 02/12/21 [History] Carvedilol [Coreg] 12.5 mg PO BID 02/12/21 [History] Cholecalciferol [Vitamin D3 (25 Mcg = 1000 Iu)] 25 mcg PO DAILY 02/12/21 [History] Insulin Aspart (For Pump) [NovoLOG (For Pump)] 0.01 unit SQ-PUMP CONTINUOUS MDD 90 units 02/12/21 [History] Magnesium 250 mg PO DAILY 02/12/21 [History] Montelukast Sodium [Singulair] 10 mg PO DAILY 02/12/21 [History] Zinc 50 mg PO DAILY 02/12/21 [History] traZODone HCL [Desyrel] 50 mg PO HS 02/12/21 [History] Omeprazole Magnesium [PriLOSEC OTC] 20 mg PO DAILY 02/13/21 [History] Clopidogrel Bisulfate [Plavix] 75 mg PO DAILY 02/21/21 [History] Rosuvastatin Calcium [Crestor] 10 mg PO DAILY 02/21/21 [History] Artichoke Supplement 1 tab PO DAILY 04/27/21 [History] Fluticasone/Umeclidin/Vilanter [Trelegy Ellipta 100-62.5-25] 1 puff INHALATION RT-BID 04/27/21 [History] Gabapentin [Neurontin] 400 mg PO HS 04/27/21 [History] Lutein 10 mg PO DAILY 04/27/21 [History] Insulin Detemir (Levemir) [Levemir] 30 unit SQ HS #9 syr 04/28/21 [Rx] Follow up Appointment(s)/Referral(s): Kaz Naranjo MD [Primary Care Provider] - 1-2 days Discharge Disposition: HOME SELF-CARE
[2021-04-28] MEDS ORDERED: GABAPENTIN 400 MG CAP PO SCH (21:00)
== END 2021-04-28 12:55 | disposition home or self-care (01) ==
LOC: EC 20:20 → 5NMEDONC 21:53 → INTOOBSV 21:53 → 6NMEDSUR 22:43
PROVIDERS: ADMIT Internal Medicine; ATTEND Internal Medicine
DX: E11.65 Type 2 diabetes mellitus with hyperglycemia (principal); E11.10 Type 2 diabetes mellitus with ketoacidosis without coma; E11.42 Type 2 diabetes mellitus with diabetic polyneuropathy; E86.0 Dehydration; I25.10 Atherosclerotic heart disease of native coronary artery without angina pectoris; J44.9 Chronic obstructive pulmonary disease, unspecified; Z79.02 Long term (current) use of antithrombotics/antiplatelets; Z79.4 Long term (current) use of insulin; Z79.82 Long term (current) use of aspirin; Z79.899 Other long term (current) drug therapy; Z82.49 Family history of ischemic heart disease and other diseases of the circulatory system; Z95.1 Presence of aortocoronary bypass graft; Z96.41 Presence of insulin pump (external) (internal)
CPT/HCPCS: 99285; 96360; 96361 ×2; 36415; 94640 ×2; 80053; 80048; 82009; 83735; 85025 ×2; 81001; 83036; G0378 ×2